=== PATIENT | male | born 1955 | race Caucasian/White ===

== ENCOUNTER 2016-12-30 13:16 | Emergency (ER) | payer MEDICAID ==
[2016-12-30] MEDS ORDERED: IPRATROPIUM/ALBUTEROL 3 ML NEB INH STA (13:50)
--- NOTE | 2016-12-30 13:54 | ED Physician Documentation ---
PD HPI DYSPNEA - Stated complaint Stated Complaint: WHEEZING - Chief complaint Chief Complaint: Resp - History obtained from History obtained from: Patient, Family (brother) - History of Present Illness Timing - onset: Other (61-year-old gentleman with history of asthma, and some sort of apparent developmental delay although they deny any other past medical history. For the last 2 weeks or so he has had a nonproductive cough especially when he eats associated with shortness of breath and audible wheezing but no chest pain. He has had a mild runny nose but nor sore throat or ear pain. He denies any pedal edema or calf pain. He lives with his brother , has been moved out here for the last 2 years from the [facility]. He does not have a local doctor.) Review of Systems Constitutional: denies: Fever, Chills Nose: reports: Rhinorrhea / runny nose. denies: Congestion Throat: denies: Sore throat Cardiac: denies: Chest pain / pressure, Palpitations Respiratory: reports: Dyspnea, Cough, Wheezing. denies: Hemoptysis GI: denies: Abdominal Pain PD PAST MEDICAL HISTORY - Past Medical History Respiratory: Asthma - Past Surgical History Past Surgical History: No - Present Medications Home Medications: Ambulatory Orders Medication Instructions Recorded Confirmed Albuterol Sulfate [Proventil Hfa 1 - 2 puffs IH Q4H PRN #1 12/30/16 Inhaler] [email or web address] Azithromycin [Zithromax] 250 mg PO DAILY #6 tablet 12/30/16 predniSONE [Deltasone] 60 mg PO DAILY 5 Days tablet 12/30/16 - Allergies Allergies/Adverse Reactions: Allergies Allergy/AdvReac Type Severity Reaction Status Date / Time No Known Drug Allergies Allergy Verified 12/30/16 13:27 - Social History Does the pt smoke?: No Smoking Status: Never smoker Does the pt drink ETOH?: No Does the pt have substance abuse?: No - Immunizations Immunizations are current?: No - POLST Patient has POLST: No PD ED PE NORMAL - Vitals Vital signs reviewed: Yes - General General: No acute distress, Well developed/nourished - HEENT HEENT: Ears normal, Pharynx benign - Neck Neck: Supple, no meningeal sign, No bony TTP - Cardiac Cardiac: RRR, No murmur - Respiratory Respiratory: Other (Nonlabored breathing, he has loud expiratory wheezing with mildly diminished breath sounds.) - Extremities Extremities: No edema, No calf tenderness / cord - Psych Psych: Normal mood, Normal affect Results - Vitals Vitals: Vital Signs - 24 hr 12/30/16 12/30/16 13:21 14:33 Temperature 36.1 C L 36.2 C L Heart Rate 96 Respiratory 16 17 Rate Blood Pressure 179/113 H 160/105 H O2 Saturation 95 96 Oxygen O2 Source Room air - Rads (name of study) 2v chest Radiology: EMP read contemporaneously (Viral or mycoplasmal pneumonia) PD MEDICAL DECISION MAKING - ED course ED course: 61-year-old with history of asthma, he is wheezing. A chest x-ray was done and shows potential walking pneumonia. This is treated with steroids and antibiotics. He was much improved on pulmonary examination after the administration of an albuterol neb here. The patient and family were counseled as to the diagnosis and need for follow- up. I counseled the patient with regard to signs and symptoms that would necessitate an urgent reevaluation in the emergency department. They understand they are welcome to return at any time if worse or if not improving as expected. This document was made in part using voice recognition software. While efforts are made to proofread this documents, sound alike and grammatical errors may occur. Departure - Departure Disposition: 01 Home, Self Care Clinical Impression: Pneumonia, Asthma Condition: Good Record reviewed to determine appropriate education?: Yes Instructions: ED Pneumonia Adult, Asthma Dc Follow-Up: [facility] [Provider Group] Prescriptions: Albuterol Sulfate [Proventil Hfa Inhaler] 1 - 2 puffs IH Q4H PRN #1 [email or web address] PRN Reason: Cough Azithromycin [Zithromax] 250 mg PO DAILY #6 tablet predniSONE [Deltasone] 60 mg PO DAILY 5 Days tablet Comments: Call your doctor to arrange a follow-up appointment, make the next available appointment. In the interim, return anytime if worse or if new symptoms develop. Your blood pressure was elevated today on check into the emergency department. This does not mean that you have hypertension, it is a common phenomenon to come to the emergency department and have elevated blood pressure. I recommend that you see your primary care physician within the week to have it rechecked when you are feeling better.
[2016-12-30] MEDS ORDERED: IPRATROPIUM/ALBUTEROL 3 ML NEB INH ONE (14:10)
--- NOTE | 2016-12-30 14:22 | XRAY Preliminary Report ---
Exam: XR CHEST 2 VIEW PA/LAT IMPRESSION: Interstitial prominence, possibly an interstitial pneumonitis, probably viral or mycoplas mal. [facility] SITE ID: [id number]
--- NOTE | 2016-12-30 14:24 | XRAY Report ---
EXAM: CHEST RADIOGRAPHY EXAM DATE: 12/30/2016 02:06 PM. CLINICAL HISTORY: Dyspnea. COMPARISON: None. TECHNIQUE: 2 views. FINDINGS: Lungs/Pleura: Diffuse interstitial prominence. Scarring or atelectasis in right lower lung zone. No c onsolidation, effusion, or pneumothorax. Mediastinum: Heart and mediastinal contours are unremarkable. Upper lobe vessels not distended. Other: Degenerative changes. IMPRESSION: Interstitial prominence, possibly an interstitial pneumonitis, probably viral or mycoplas mal. [facility] Referring Provider Line: [phone] SITE ID: [id number]
[2016-12-30 14:34] VITALS: BP 160/105
== END 2016-12-30 14:57 | disposition home or self-care (01) ==
LOC: ED 13:16
DX: J18.9 Pneumonia, unspecified organism (principal); J45.909 Unspecified asthma, uncomplicated; R03.0 Elevated blood-pressure reading, without diagnosis of hypertension
CPT/HCPCS: 71020; 99283; 99284; J7620

== ENCOUNTER 2019-01-13 10:17 | Emergency (ER) | payer MEDICAID ==
[2019-01-13] MEDS ORDERED: IPRATROPIUM/ALBUTEROL 3 ML NEB INH STA ×2 (10:36→14:07)
--- NOTE | 2019-01-13 11:15 | XRAY Report ---
Reason: cough, sob, wheezing/ Procedure Date: 01/13/2019 Accession Number: [id number] / [id number] Procedure: XR - Chest 1 View X-Ray CPT Code: 54113 Final Report FULL RESULT: EXAM: CHEST RADIOGRAPHY EXAM DATE: 01/13/2019 10:47 AM. CLINICAL HISTORY: Cough, short of breath, wheezing/. COMPARISON: CHEST 2 VIEW PA/LAT 12/30/2016 1:51 PM. TECHNIQUE: 1 view. FINDINGS: Lungs/Pleura: Mildly low volumes. No definite pneumonia or edema. No gross pneumothorax or large effusion. Mediastinum: Within exam limitations, cardiomediastinal contour is normal. Other: None. IMPRESSION: Mildly hypoventilatory chest without definite acute process. [facility]
[2019-01-13] MEDS ORDERED: ALBUTEROL NEB 2.5 MG/3 ML INH STA ×2 (11:20→15:59)
[2019-01-13] MEDS ORDERED: DEXAMETHASONE 10 MG/ML VIAL PO STA (11:21)
[2019-01-13] MEDS ORDERED: ALBUTEROL NEB 2.5 MG/3 ML INH ONE (11:21)
[2019-01-13] MEDS ORDERED: CHERRY SYRUP 10 ML UDC PO ONE (11:21)
--- NOTE | 2019-01-13 11:23 | ED Physician Documentation ---
PD HPI URI - Stated complaint Stated Complaint: SOA - Chief complaint Chief Complaint: Resp - History obtained from History obtained from: Patient, Family - History of Present Illness Timing - onset: How many weeks ago (1) Timing duration: Weeks (1) Timing details: Gradual onset, Still present Associated symptoms: Rhinorrhea, Productive cough, Dyspnea Contributing factors: Sick contact Improves by: Rest, Medication, MDI/nebulizer Worsened by: Activity Similar symptoms before: Diagnosis (asthma) Recently seen: Not recently seen - Additional information Additional information: 63-year-old male with a history of developmental delay and cerebral palsy has developed a cough and congestion and is coughing up yellow phlegm. He has been sick for the past week and he is having some trouble with non-stop coughing. He has used an inhaler previously but his brother who has moved him up here 4 years ago has not seen him have asthma this bad. He has had to use an inhaler periodically but he is not too good about using it. Review of Systems Constitutional: reports: Fatigue. denies: Fever Eyes: denies: Decreased vision Ears: denies: Ear pain Nose: reports: Rhinorrhea / runny nose, Congestion Throat: reports: Sore throat Cardiac: denies: Chest pain / pressure, Palpitations Respiratory: reports: Dyspnea, Cough, Wheezing GI: denies: Abdominal Pain, Nausea, Vomiting : denies: Dysuria, Frequency Skin: denies: Rash Musculoskeletal: denies: Neck pain, Back pain, Extremity pain Neurologic: denies: Generalized weakness, Focal weakness, Numbness PD PAST MEDICAL HISTORY - Past Medical History Respiratory: Asthma - Past Surgical History Past Surgical History: No - Present Medications Home Medications: Ambulatory Orders Medication Instructions Recorded Confirmed Albuterol Sulfate [Proventil Hfa 1 - 2 puffs IH Q4H PRN #1 12/30/16 Inhaler] [email or web address] Azithromycin [Zithromax] 250 mg PO DAILY #6 tablet 12/30/16 predniSONE [Deltasone] 60 mg PO DAILY 5 Days tablet 12/30/16 Albuterol Sulf [Ventolin Hfa 1 - 2 puffs INH Q4HR PRN #1 inhaler 01/13/19 Inhaler] Azithromycin [Zithromax] 250 mg PO DAILY #6 tablet 01/13/19 predniSONE [Deltasone] 10 mg PO ONCE #26 tablet 01/13/19 - Allergies Allergies/Adverse Reactions: Allergies Allergy/AdvReac Type Severity Reaction Status Date / Time No Known Drug Allergies Allergy Verified 12/30/16 13:27 - Social History Does the pt smoke?: No Smoking Status: Never smoker Does the pt drink ETOH?: No Does the pt have substance abuse?: No - Immunizations Immunizations are current?: No - POLST Patient has POLST: No PD ED PE NORMAL - Vitals Vital signs reviewed: Yes (tachy and hypertensive ) - General General: No acute distress, Well developed/nourished - HEENT HEENT: Atraumatic, PERRL, EOMI, Other (both TM's are mostly occluded from veiw by cerumen. There is inflamation in the posterior pharynx and swelling of the uvual. The mucous membranes are dry and there is exudate draining down the back of the phayrnx. ) - Neck Neck: Supple, no meningeal sign, No bony TTP - Cardiac Cardiac: No murmur, Other (tachy to 100) - Respiratory Respiratory: Other (coughing with every breath with diminished breath sounds without rhonchi ) - Abdomen Abdomen: Soft, Non tender - Back Back: No CVA TTP, No spinal TTP - Derm Derm: Normal color, Warm and dry, No rash - Extremities Extremities: No deformity, No edema - Neuro Neuro: auto cleaner 2-12 intact, No motor deficit, No sensory deficit, Normal speech Eye Opening: Spontaneous Motor: Obeys Commands Verbal: Oriented GCS Score: 15 - Psych Psych: Normal mood, Normal affect Results - Vitals Vitals: Vital Signs - 24 hr 01/13/19 01/13/19 01/13/19 10:23 10:51 11:19 Temperature 37 C Heart Rate 104 H 110 H 101 H Respiratory 24 24 26 H Rate Blood Pressure 193/112 H 169/114 H O2 Saturation 95 97 01/13/19 01/13/19 01/13/19 11:27 12:27 14:00 Temperature Heart Rate 104 H 106 H 96 Respiratory 24 24 16 Rate Blood Pressure 181/95 H 171/95 H O2 Saturation 92 93 01/13/19 01/13/19 14:31 16:00 Temperature Heart Rate 97 104 H Respiratory 20 16 Rate Blood Pressure 181/106 H O2 Saturation 93 Oxygen O2 Source Room air - Rads (name of study) chest Radiology: Prelim report reviewed (Impression: Mild hypoventilatory chest without definite acute process.), EMP read indepedently, See rad report PD MEDICAL DECISION MAKING - ED course Complexity details: reviewed results, re-evaluated patient, considered differential, d/w patient, d/w family ED course: 63-year-old developmentally delayed male with a history of asthma has developed an asthma exacerbation and appears to have an upper respiratory infection with copious amounts of yellow phlegm being coughed up. He seems like he is choking on phlegm continuously. He is administered dexamethasone on arrival to the emergency department and this has slowly begun to take effect. He is given a DuoNeb treatment and albuterol treatment and second DuoNeb treatment. He has marked improvement in his his breathing and he is taught on his fourth treatment, the use of a spacer and the use of the inhaler. We will discharge the patient with a course of prednisone and albuterol inhaler and a Z-Raj. Departure - Departure Disposition: 01 Home, Self Care Clinical Impression: Bronchitis Asthma exacerbation Qualifiers: Asthma severity: mild Asthma persistence: intermittent Qualified Code(s): J45.21 - Mild intermittent asthma with (acute) exacerbation Condition: Stable Instructions: ED Upper Resp Infec Abx Tx, ED Bronchitis Asthmatic Follow-Up: [facility] [Provider Group] Prescriptions: Albuterol Sulf [Ventolin Hfa Inhaler] 1 - 2 puffs INH Q4HR PRN #1 inhaler PRN Reason: Shortness Of Air/Wheezing Azithromycin [Zithromax] 250 mg PO DAILY #6 tablet predniSONE [Deltasone] 10 mg PO ONCE #26 tablet
[2019-01-13] MEDS ORDERED: cefTRIAXone 1 GM VIAL IM STA (15:59)
[2019-01-13] MEDS ORDERED: LIDOCAINE 1% 2 ML VIAL MC ONE (15:59)
[2019-01-13 17:36] VITALS: BP 194/86
== END 2019-01-13 17:36 | disposition home or self-care (01) ==
LOC: ED 10:17
DX: J45.21 Mild intermittent asthma with (acute) exacerbation (principal); J40 Bronchitis, not specified as acute or chronic; H61.23 Impacted cerumen, bilateral; G80.9 Cerebral palsy, unspecified
CPT/HCPCS: 71045; 94640; 96374; 99284; 99285; A9270

== ENCOUNTER 2020-03-21 01:18 | Emergency (ER) | payer MEDICAID ==
--- NOTE | 2020-03-21 01:31 | ED Physician Documentation ---
PD HPI NECK PAIN - Stated complaint Stated Complaint: STIFF NECK - Chief complaint Chief Complaint: Ext Problem - History obtained from History obtained from: Patient - History of Present Illness Timing - onset: How many days ago (2) Pain level now: 6 Location: Lower, Right Quality: Pain Associated symptoms: No: Fever, Weakness, Numbness Improves with: Position Worsened by: Movement Similar symptoms before: Has not had sx before Recently seen: Not recently seen - Additional information Additional information: c/o gradual onset of atraumatic right-sided neck pain that radiates to right trapezial ridge. denies h/o similar symptoms. has not taken any analgesics at home for this. Denies fever, rash Review of Systems Throat: denies: Sore throat Cardiac: denies: Chest pain / pressure Respiratory: reports: Cough (mild, nonproductive). denies: Dyspnea Skin: denies: Rash Musculoskeletal: reports: Neck pain. denies: Back pain Neurologic: denies: Focal weakness, Numbness, Headache PD PAST MEDICAL HISTORY - Past Medical History Respiratory: Asthma Other Past Medical History: cerebral palsy - Past Surgical History Past Surgical History: No - Present Medications Home Medications: Ambulatory Orders Medication Instructions Recorded Confirmed Albuterol Sulf [Ventolin Hfa 1 - 2 puffs INH Q4HR PRN #1 inhaler 01/13/19 03/21/20 Inhaler] Cyclobenzaprine [Flexeril] 10 mg PO TID PRN #20 tablet 03/21/20 HYDROcod/ACETAM 5/325 [Sterling 5/325] 1 - 2 ea PO Q6H PRN #15 tablet 03/21/20 - Allergies Allergies/Adverse Reactions: Allergies Allergy/AdvReac Type Severity Reaction Status Date / Time No Known Drug Allergies Allergy Verified 03/21/20 01:34 - Social History Does the pt smoke?: No Smoking Status: Never smoker Does the pt drink ETOH?: No Does the pt have substance abuse?: No - Immunizations Immunizations are current?: No - POLST Patient has POLST: No PD ED PE NORMAL - Vitals Vital signs reviewed: Yes - General General: Alert and oriented X 3, No acute distress, Well developed/nourished, Other (maintains neck in position of mild leftward rotation) - HEENT HEENT: PERRL, EOMI - Neck Neck: No bony TTP, No adenopathy, Thyroid normal, Other - Respiratory Respiratory: No respiratory distress, Clear bilaterally - Derm Derm: Normal color, Warm and dry, No rash - Extremities Extremities: Other (equal and strong bilateral radial pulses. FROM right shoulder. mild tenderness along right trapezial ridge) - Neuro Neuro: No motor deficit, No sensory deficit Results - Vitals Vitals: Vital Signs - 24 hr 03/21/20 03/21/20 01:20 02:56 Temperature 36.7 C 36.4 C L Heart Rate 96 92 Respiratory 16 16 Rate Blood Pressure 177/93 H 181/107 H O2 Saturation 98 95 Oxygen O2 Source Room air - Rads (name of study) chest xray Radiology: Prelim report reviewed, See rad report PD MEDICAL DECISION MAKING - ED course Complexity details: reviewed results, re-evaluated patient, considered differential, d/w patient ED course: c/o gradual onset right-sided neck pain that is ameliorated with maintaining leftward rotation of his neck. He has FROM of neck, but c/o increased pain with right rotation. nontender and no rash. He indicates the pain is most pronounced along right trapezial ridge. He has no fever nor rash; doubt meningitis. Shingles is possible and patient and his brother instructed to watch for any rash that develops in the area of the pain. He c/o mild [employer] cough, CXR is unremarkable and thus doubt developing pulmonary infectious process, no evidence of pneumothorax. cervical radiculopathy suspected, differential includes (but not limited to) spinal stenosis, spondylosis, discogenic pain, cervical facet osteoarthritis. Patient reported adequate relief with flexeril and vicodin, provided rx for same, instructed to f/u with PMD but return if worse or develops new concerning signs/symptoms Departure - Departure Disposition: Home, Self Care Clinical Impression: Neck pain High blood pressure Qualifiers: Hypertension type: unspecified Qualified Code(s): I10 - Essential (primary) hypertension Condition: Good Instructions: ED Hypertension Poss, ED Neck Pain No Trauma Follow-Up: [facility] [Provider Group] Prescriptions: Cyclobenzaprine [Flexeril] 10 mg PO TID PRN #20 tablet PRN Reason: Spasms HYDROcod/ACETAM 5/325 [Sterling 5/325] 1 - 2 ea PO Q6H PRN #15 tablet PRN Reason: Pain Discharge Date/Time: 03/21/20 03:15
[2020-03-21] MEDS ORDERED: HYDROcod/ACETAM 5/325 MG TABLET PO STA (01:47)
[2020-03-21] MEDS ORDERED: CYCLOBENZAPRINE 10 MG TABLET PO STA (01:47)
[2020-03-21 03:04] VITALS: BP 181/107
--- NOTE | 2020-03-21 08:39 | XRAY Report ---
PROCEDURE: Chest 2 View X-Ray INDICATIONS: right shoulder/neck pain, cough TECHNIQUE: 2 view(s) of the chest. COMPARISON: 01/13/2019, 12/30/2016 FINDINGS: Surgical changes and devices: None. Lungs and pleura: No pleural effusions or pneumothorax. Lungs are clear. Low lung volumes can be s een, causing a crowded appearance to the lung markings. Mediastinum: Mediastinal contours are normal. Heart size is normal. Bones and chest wall: S-shaped scoliotic curvature is incidentally noted. Lower thoracic spine ante rior wedge deformities are seen, which appear worse compared to 2017. Soft tissues appear unremarkabl e. IMPRESSION: Low lung volumes, without focal infiltrates. Lower thoracic spine anterior wedge deformities appear progressed compared to 2017. Note: No significant discrepancy from the preliminary report. Reviewed by: Pavel Samuel MD on 03/21/2020 7:37 AM [place] Approved by: Pavel Samuel MD on 03/21/2020 7:37 AM [facility] Station ID: [id number]
== END 2020-03-21 03:15 | disposition home or self-care (01) ==
LOC: ED 01:18
DX: M54.2 Cervicalgia (principal); R05 Cough; I10 Essential (primary) hypertension; G80.9 Cerebral palsy, unspecified; J45.909 Unspecified asthma, uncomplicated
CPT/HCPCS: 71046; 99283; 99284; A9270

== ENCOUNTER 2021-09-22 11:59 | Emergency (ER) | payer MEDICARE, MEDICAID ==
[2021-09-22] MEDS ORDERED: IPRATROPIUM/ALBUTEROL 3 ML NEB INH STA (12:20)
[2021-09-22 12:29] LABS: BASOPHILS % (AUTO) 0.3 %; EOSINOPHILS % (AUTO) 0.1 %; HCT - HEMATOCRIT 35.7 % (42.0-52.0); HGB - HEMOGLOBIN 12.4 g/dL (14.0-18.0); LYMPHOCYTES # (AUTO) 1.3 10^3/uL (1.5-3.5); LYMPHOCYTES % (AUTO) 9.2 %; MEAN CORPUSCULAR HEMOGLOBIN 31.5 pg (27.0-31.0); MEAN CORPUSCULAR HGB CONC 34.7 g/dL (32.0-36.0); MEAN CORPUSCULAR VOLUME 90.6 fL (80.0-94.0); MEAN PLATELET VOLUME 9.3 fL (7.4-11.4); MONOCYTES # (AUTO) 1.6 10^3/uL (0.0-1.0); MONOCYTES % (AUTO) 11.2 %; NEUTROPHILS % (AUTO) 78.3 %; PLT - PLATELET COUNT 287 10^3/uL (130-450); RED BLOOD COUNT 3.94 10^6/uL (4.70-6.10); RED CELL DISTRIBUTION WIDTH 12.9 % (12.0-15.0); WHITE BLOOD COUNT 14.1 x10^3/uL (4.8-10.8)
[2021-09-22 12:32] LABS: SLIDE REVIEW? Indicated
--- NOTE | 2021-09-22 12:43 | XRAY Report ---
PROCEDURE: Chest 1 View X-Ray INDICATIONS: dyspnea, wheezing TECHNIQUE: One view of the chest was acquired. COMPARISON: 03/21/2020 FINDINGS: Surgical changes and devices: None. Lungs and pleura: Lung volumes are low. The interstitium is prominent platelike atelectasis at the ri ght base. No pleural effusion or pneumothorax. Mediastinum: Mediastinal contours appear normal. Heart size is normal. Bones and chest wall: No suspicious bony lesions. Overlying soft tissues appear unremarkable. IMPRESSION: Low lung volumes. Interstitial prominence may be seen with edema or atypical infection. No pleural ef fusion. Platelike atelectasis/scarring at the right base. Reviewed by: Joe Nair MD on 09/22/2021 12:41 PM PDT Approved by: Joe Nair MD on 09/22/2021 12:41 PM PDT Station ID: [id number]
--- NOTE | 2021-09-22 12:53 | ED Physician Documentation ---
PD HPI DYSPNEA - Stated complaint Stated Complaint: SOA - Chief complaint Chief Complaint: Resp - History obtained from History obtained from: Family - History of Present Illness Timing - onset: Unknown - Additional information Additional information: 65-year-old male with history of cerebral palsy, history of asthma presents by private vehicle for shortness of breath unknown duration. History is obtained from the patient's legal guardian, who states that she went to check on the patient today and found him laying on the ground gasping for air this morning. Last seen normal approximately 3 days ago. Patient normally lives by himself, patient's current guardian recently obtained guardianship after a in the family. Medical guardian states that the patient has exhibited a wheezing breathing pattern intermittently for the last month, he has not been to see his primary care doctor for this. On arrival the patient was tachypneic, exhibiting loud inspiratory and expiratory wheezing, however oxygen saturation was 95% on room air. Patient was taken quickly to ER bed for stabilization. Review of Systems Unable to obtain: Other (SEVERE DYSPNEA, UNABLE TO TALK) Respiratory: reports: Dyspnea, Wheezing PD PAST MEDICAL HISTORY - Past Medical History Respiratory: Asthma Neuro: Cerebral palsy Psych: Other - Past Surgical History Past Surgical History: No - Present Medications Home Medications: Ambulatory Orders Medication Instructions Recorded Confirmed Albuterol Sulf [Ventolin Hfa 2 puffs INH Q6HR PRN 09/22/21 09/22/21 Inhaler] Budesonide/Formoterol Fumarate 2 puffs IH BID 09/22/21 09/22/21 [Symbicort 80-4.5 Mcg Inhaler] Cholecalciferol [Vitamin D3] 5,000 unit ORAL DAILY 09/22/21 09/22/21 Levothyroxine [Synthroid] 75 mcg PO QDAC 09/22/21 09/22/21 Losartan/Hydrochlorothiazide 1 each PO DAILY 09/22/21 09/22/21 [Hyzaar 100-25 Tablet] - Allergies Allergies/Adverse Reactions: Allergies Allergy/AdvReac Type Severity Reaction Status Date / Time No Known Drug Allergies Allergy Verified 09/22/21 12:09 - Social History Does the pt smoke?: No Smoking Status: Never smoker Does the pt drink ETOH?: No Does the pt have substance abuse?: No - Immunizations Immunizations are current?: No - POLST Patient has POLST: No PD ED PE NORMAL - Vitals Vital signs reviewed: Yes - General General: Other (Pale, toxic appearing) - HEENT HEENT: Atraumatic, PERRL, EOMI - Neck Neck: Supple, no meningeal sign, No bony TTP, C-Spine cleared by NEXUS criteria - Cardiac Cardiac: No murmur, Strong equal pulses, Other (tachycardia) - Respiratory Respiratory: Other (tachypnea, coarse wheezing) - Abdomen Abdomen: Soft, Non tender, Non distended, No organomegaly - Back Back: No CVA TTP, No spinal TTP - Derm Derm: Warm and dry, No rash, Other (pale) - Extremities Extremities: No tenderness to palpate, Normal ROM s pain - 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, No motor deficit, No sensory deficit, Normal speech (at baseline) Results - Vitals Vitals: Vital Signs - 24 hr 09/22/21 09/22/21 09/22/21 20:55 21:00 21:30 Heart Rate 99 97 106 H Respiratory 25 H 26 H 28 H Rate Blood Pressure 157/79 H 157/94 H 175/162 H O2 Saturation 95 98 96 09/22/21 09/22/21 09/22/21 22:00 22:17 22:30 Heart Rate 107 H 104 H 105 H Respiratory 26 H 27 H Rate Blood Pressure 160/89 H 153/99 H O2 Saturation 96 95 09/22/21 23:00 Heart Rate 96 Respiratory 29 H Rate Blood Pressure 171/104 H O2 Saturation 96 Oxygen O2 Source BIPAP Oxygen Flow Rate 2 - EKG (time done) 1244 Rate: Rate (enter#) (118) Rhythm: Sinus tachycardia [place]: Normal Intervals: Normal [place] QRS: Normal - Labs Labs: Microbiology 09/22/21 12:28 Blood Culture - Preliminary Blood NO GROWTH AFTER 1 DAY 09/22/21 12:21 Blood Culture - Preliminary Blood NO GROWTH AFTER 1 DAY Laboratory Tests 09/22/21 09/22/21 09/22/21 12:21 12:21 12:21 WBC 14.1 H RBC 3.94 L Hgb 12.4 L Hct 35.7 L MCV 90.6 MCH 31.5 H MCHC 34.7 RDW 12.9 Plt Count 287 MPV 9.3 Neut # (Auto) 11.0 H Lymph # (Auto) 1.3 L [place] # (Auto) 1.6 H Eos # (Auto) 0.0 Baso # (Auto) 0.0 Absolute Nucleated RBC 0.00 Nucleated RBC % 0.0 Manual Slide Review Indicated RBC Morph Micro Appear 1+ ANISOCYTOSIS APTT Bld Gas Analysis Time Sample Site ABG pH ABG pCO2 ABG pO2 ABG HCO3 ABG Total CO2 ABG O2 Saturation ABG Base Excess Jarrett Test O2 Delivery Device FiO2 EPAP IPAP Sodium Potassium Chloride Carbon Dioxide Anion Gap BUN Creatinine Estimated GFR (MDRD) Glucose Lactic Acid 2.0 Calcium Magnesium Total Bilirubin AST ALT Alkaline Phosphatase Troponin I High Sens B-Natriuretic Peptide 174 H Total Protein Albumin Globulin Albumin/Globulin Ratio Nasal Adenovirus (PCR) Nasal B. parapertussis DNA (PCR) Nasal Coronavir 229E PCR Nasal Coronavir HKU1 PCR Nasal Coronavir NL63 PCR Nasal Coronavir OC43 PCR Nasal Enterovir/Rhinovir PCR Nasal Influenza B PCR Nasal Influenza A PCR Nasal Parainfluen 1 PCR Nasal Parainfluen 2 PCR Nasal Parainfluen 3 PCR Nasal Parainfluen 4 PCR Nasal RSV (PCR) Nasal B.pertussis DNA PCR Nasal C.pneumoniae (PCR) Ar Human Metapneumo PCR Nasal M.pneumoniae (PCR) Nasal SARS-CoV-2 (PCR) 09/22/21 09/22/21 09/22/21 12:21 12:55 12:55 WBC RBC Hgb Hct MCV MCH MCHC RDW Plt Count MPV Neut # (Auto) Lymph # (Auto) [place] # (Auto) Eos # (Auto) Baso # (Auto) Absolute Nucleated RBC Nucleated RBC % Manual Slide Review RBC Morph Micro Appear APTT Bld Gas Analysis Time Sample Site ABG pH ABG pCO2 ABG pO2 ABG HCO3 ABG Total CO2 ABG O2 Saturation ABG Base Excess Jarrett Test O2 Delivery Device FiO2 EPAP IPAP Sodium 136 Potassium 3.4 L Chloride 98 L Carbon Dioxide 25 Anion Gap 13.0 BUN 38 H Creatinine 1.3 H Estimated GFR (MDRD) 55 L Glucose 220 H Lactic Acid Calcium 9.3 Magnesium 1.9 Total Bilirubin 1.3 H AST 164 H ALT 162 H Alkaline Phosphatase 78 Troponin I High Sens 529.6 H* B-Natriuretic Peptide Total Protein 7.7 Albumin 3.1 L Globulin 4.6 H Albumin/Globulin Ratio 0.7 L Nasal Adenovirus (PCR) NOT DETECTED Nasal B. parapertussis DNA (PCR) NOT DETECTED Nasal Coronavir 229E PCR NOT DETECTED Nasal Coronavir HKU1 PCR NOT DETECTED Nasal Coronavir NL63 PCR NOT DETECTED Nasal Coronavir OC43 PCR NOT DETECTED Nasal Enterovir/Rhinovir PCR NOT DETECTED Nasal Influenza B PCR NOT DETECTED Nasal Influenza A PCR NOT DETECTED Nasal Parainfluen 1 PCR NOT DETECTED Nasal Parainfluen 2 PCR NOT DETECTED Nasal Parainfluen 3 PCR NOT DETECTED Nasal Parainfluen 4 PCR NOT DETECTED Nasal RSV (PCR) NOT DETECTED Nasal B.pertussis DNA PCR NOT DETECTED Nasal C.pneumoniae (PCR) NOT DETECTED Ar Human Metapneumo PCR NOT DETECTED Nasal M.pneumoniae (PCR) NOT DETECTED Nasal SARS-CoV-2 (PCR) NOT DETECTED 09/22/21 09/22/21 09/22/21 14:35 14:56 19:45 WBC RBC Hgb Hct MCV MCH MCHC RDW Plt Count MPV Neut # (Auto) Lymph # (Auto) [place] # (Auto) Eos # (Auto) Baso # (Auto) Absolute Nucleated RBC Nucleated RBC % Manual Slide Review RBC Morph Micro Appear APTT 63.9 H Bld Gas Analysis Time 1443 Sample Site RIGHT RADIAL ABG pH 7.51 H ABG pCO2 30 L ABG pO2 86 ABG HCO3 23.1 ABG Total CO2 24.0 ABG O2 Saturation 97 ABG Base Excess 0.9 Jarrett Test POSITIVE O2 Delivery Device BiPAP FiO2 25.00 EPAP 5 IPAP 10 Sodium Potassium Chloride Carbon Dioxide Anion Gap BUN Creatinine Estimated GFR (MDRD) Glucose Lactic Acid Calcium Magnesium Total Bilirubin AST ALT Alkaline Phosphatase Troponin I High Sens 490.7 H* B-Natriuretic Peptide Total Protein Albumin Globulin Albumin/Globulin Ratio Nasal Adenovirus (PCR) Nasal B. parapertussis DNA (PCR) Nasal Coronavir 229E PCR Nasal Coronavir HKU1 PCR Nasal Coronavir NL63 PCR Nasal Coronavir OC43 PCR Nasal Enterovir/Rhinovir PCR Nasal Influenza B PCR Nasal Influenza A PCR Nasal Parainfluen 1 PCR Nasal Parainfluen 2 PCR Nasal Parainfluen 3 PCR Nasal Parainfluen 4 PCR Nasal RSV (PCR) Nasal B.pertussis DNA PCR Nasal C.pneumoniae (PCR) Ar Human Metapneumo PCR Nasal M.pneumoniae (PCR) Nasal SARS-CoV-2 (PCR) PD MEDICAL DECISION MAKING - ED course Complexity details: reviewed results, re-evaluated patient, considered differential, d/w patient ED course: Patient presenting in severe distress, audibly wheezing, tachypneic, using abdominal muscles for inspiration. Placed on nasal cannula. Guardian reports hx of asthma, will treat for suspected pneumonia versus asthma exacerbation with antibiotics, steroids, duo nebs. No significant improvement with DuoNeb's, patient is still audibly wheezing and tachypneic. Chest x-ray is concerning for pulmonary edema, however BNP is only 170. Patient is now in a hospital gown, his legs are severely edematous with overlying cellulitis, right lower extremity greater than left lower extremity. Uncertain how long his legs have been swollen, patient states it has been greater than 1 year, however guardian state that it has definitely not been that long but they do not know exactly when the swelling started. Lasix is ordered. Troponin is 500, EKG does not show any signs of ischemia, patient is denying chest pain. Still tachypneic with abdominal respirations, placed successfully on BiPAP with improvement in respiratory status. Hospitalist declined admission stating that patient would need an ischemic work-up. At this time the patient is diuresing, comfortable on BiPAP. Transfer to higher level of care pending. - Critical Care Time(min): 45 Time Includes: Direct patient care, Review records, Reassess patient, Document care, Coordinate care, Medical consult, Family consult for tx dec Data interpretation: Labs, Pulse ox, ABG, CXR, Cardiac output Procedures included in critical care time: Peripheral IV Departure - Departure Disposition: 02 Transfer Acute Care Hosp Clinical Impression: Volume overload, Cellulitis, Elevated troponin Condition: Serious Discharge Date/Time: 09/22/21 23:48
[2021-09-22 12:59] LABS: RBC MORPHOLOGY (MULTIPLE) 1+ ANISOCYTOSIS (NORMAL)
[2021-09-22 13:13] LABS: ALBUMIN 3.1 g/dL (3.2-5.5); ALBUMIN/GLOBULIN RATIO 0.7 (1.0-2.2); BILIRUBIN,TOTAL 1.3 mg/dL (0.2-1.0); CALCIUM 9.3 mg/dL (8.5-10.3); CREATININE 1.3 mg/dL (0.6-1.2); MAGNESIUM 1.9 mg/dL (1.7-2.8); POTASSIUM 3.4 mmol/L (3.5-5.0); TOTAL PROTEIN 7.7 g/dL (6.7-8.2)
[2021-09-22] MEDS ORDERED: FUROSEMIDE 40 MG/4 ML VIAL IVP STA (13:15)
--- NOTE | 2021-09-22 13:29 | CT Report ---
PROCEDURE: HEAD WO INDICATIONS: Multiple falls, generalized weakness TECHNIQUE: Noncontrast 4.5 mm thick angled axial sections acquired from the foramen magnum to the vertex. For r adiation dose reduction, the following was used: automated exposure control, adjustment of mA and/or kV according to patient size. COMPARISON: None. FINDINGS: Image quality: Excellent. CSF spaces: Basal cisterns are patent. No extra-axial fluid collections. Ventricles are normal in size and shape. Brain: No acute intracranial hemorrhage, abnormal extra-axial fluid collection, mass effect, or midli ne shift. Cunningham-white matter differentiation is maintained, without CT evidence of acute large territo ry infarct. Skull and face: Calvarium and visualized facial bones are intact, without suspicious lesions. Sinuses: Visualized sinuses and mastoids are clear. IMPRESSION: No acute intracranial finding. Reviewed by: Leo Castaneda MD on 09/22/2021 1:28 PM PDT Approved by: Leo Castaneda MD on 09/22/2021 1:28 PM PDT Station ID: [id number]
--- NOTE | 2021-09-22 13:32 | CT Report ---
PROCEDURE: CERVICAL SPINE WO INDICATIONS: Multiple falls, gen weakness TECHNIQUE: Noncontrast 3 mm thick sections acquired from the skull base to the T4 level. Sagittal and coronal r eformats were then constructed. For radiation dose reduction, the following was used: automated exp osure control, adjustment of mA and/or kV according to patient size. COMPARISON: None. FINDINGS: Image quality: Motion degraded. Bones: No fractures or dislocations. Visualized superior ribs are intact. Soft tissues: Prevertebral soft tissues are normal in thickness. No paravertebral hematomas. No ap ical pneumothoraces. IMPRESSION: Motion degraded exam. No gross CT evidence of acute traumatic cervical spine injury. Reviewed by: Leo Castaneda MD on 09/22/2021 1:31 PM PDT Approved by: Leo Castaneda MD on 09/22/2021 1:31 PM PDT Station ID: [id number]
[2021-09-22 13:51] LABS: B. PARAPERTUSSIS- RESP PCR PAN NOT DETECTED; B. PERTUSSIS- RESP PCR PANEL NOT DETECTED; C. PNEUMONIAE- RESP PCR PANEL NOT DETECTED; CORONAVIRUS 229E-RESP PCR NOT DETECTED; CORONAVIRUS HKU1-RESP PCR NOT DETECTED; CORONAVIRUS NL63-RESP PCR NOT DETECTED; CORONAVIRUS OC43-RESP PCR NOT DETECTED; HUMAN METAPNEUMOVIRUS NOT DETECTED; INFLUENZA A- RESP PCR PANEL NOT DETECTED; INFLUENZA B - RESP PCR PANEL NOT DETECTED; M. PNEUMONIAE- RESP PCR PANEL NOT DETECTED; PARAINFLUENZA VIRUS 1 NOT DETECTED; PARAINFLUENZA VIRUS 2 NOT DETECTED; PARAINFLUENZA VIRUS 3 NOT DETECTED; PARAINFLUENZA VIRUS 4 NOT DETECTED; RHINOVIRUS/ENTEROVIRUS NOT DETECTED; RSV- RESP PCR PANEL NOT DETECTED; SARS-CoV-2 -RESP PCR PANEL NOT DETECTED
[2021-09-22] MEDS ORDERED: VANCOMYCIN INJ 2 GM in SODIUM CHLORIDE 0.9% 500 ML IV SCH (14:00)
[2021-09-22] MEDS ORDERED: HEPARIN 25000UNITS/500ML (D5W) 25,000 UNIT/500 ML BAG IV SCH (14:00)
[2021-09-22 14:45] LABS: ABG BASE EXCESS 0.9 mmol/L (-2.0-3.0); ABG HCO3 23.1 mmol/L (22.0-26.0); ABG OXYGEN SATURATION 97 % (94-98); ABG PCO2 30 mmHg (34-45); ABG PH 7.51 (7.35-7.45); ABG PO2 86 mmHg (80-100); ALLEN TEST POSITIVE
[2021-09-22] MEDS ORDERED: ASPIRIN CHEW 81 MG TABLET PO STA (17:42)
--- NOTE | 2021-09-22 18:28 | CT Report ---
PROCEDURE: ANGIO CHEST W/WO INDICATIONS: dyspnea, hypoxemic respiratory failure CONTRAST: IV CONTRAST: Optiray 320 ml: 80 PO CONTRAST: *NO PO CONTRAST TECHNIQUE: After the administration of intravenous contrast, 2 mm axial images were acquired from the pulmonary apices to the posterior costophrenic angles during the arterial phase. In addition, 1 mm lung kernel and 5 mm soft tissue kernel reconstructions were performed. 3-dimensional coronal oblique maximum int ensity projection (MIP) reformats, 8 mm axial MIP, and 5 mm coronal and sagittal MPR reformats were t hen performed through the thorax. For radiation dose reduction, the following was used: automated exp osure control, adjustment of mA and/or kV according to patient size. COMPARISON: Correlation is made with the accompanying chest plain film, 09/22/2021. Correlation is als o made with the accompanying CT examinations of the head and cervical spine, 09/22/2021. FINDINGS: Image quality: Motion artifact is noted. There is streak artifact seen through the upper abdomen. Pulmonary arteries: Pulmonary arteries are normal in size, and demonstrate no intraluminal filling d efects to suggest central pulmonary embolism. However, motion artifact limits evaluation of the juan j pheral subsegmental arteries, particularly involving the lower lobes. Lungs and pleura: Likely streaky atelectasis can be seen at the lung bases. No pleural effusions or p neumothorax. Central and peripheral airways are patent. Mediastinum: Heart size is normal, without pericardial effusion. No mediastinal or hilar adenopathy . Moderate coronary artery calcification is seen. Thoracic aorta is normal in caliber and enhancement . Esophagus is normal in caliber, without hiatal hernia. Bones and chest wall: No suspicious bony lesions. Ribs and thoracic spine appear intact throughout. Age-appropriate degenerative changes are seen. There is accentuated thoracic kyphosis. No axillar y or supraclavicular adenopathy. The thyroid is normal in size and there are no incidental findings. Abdomen: An enlarged, fatty liver is seen. The visualized portions of the upper abdominal structures are otherwise within normal limits. IMPRESSION: Motion limited study demonstrating no findings of large or central pulmonary embolus. Incidental note is made of: Moderate coronary artery calcification Enlarged, fatty liver Reviewed by: Pavel Samuel MD on 09/22/2021 6:27 PM PDT Approved by: Pavel Samuel MD on 09/22/2021 6:27 PM PDT Station ID: [id number]
--- NOTE | 2021-09-22 20:46 | ED Physician Documentation ---
ED Addendum - Addendum Addendum: 09/22/21 20:[address] Dumont at shift change. Waiting for bed availability at [facility] and at this time he has been accepted to [facility] and cobras are completed. Disposition transferred to [facility] for higher level of care Condition guarded but stable
[2021-09-22 23:12] VITALS: BP 171/104
== END 2021-09-22 23:48 | disposition short-term general hospital (02) ==
LOC: ED 11:59
DX: E87.70 Fluid overload, unspecified (principal); I50.9 Heart failure, unspecified; L03.116 Cellulitis of left lower limb; L03.115 Cellulitis of right lower limb; R74.8 Abnormal levels of other serum enzymes; Z20.822 Contact with and (suspected) exposure to COVID-19
CPT/HCPCS: 36415; 36600; 70450; 71045; 71275; 72125; 80053; 82803; 83605; 83735; 83880; 84484; 85025; 85730; 87040; 87633; 93005; 94640; 94660; 96365; 96366; 96375; 99285; 99291; A9270; J3370; Q9967; 81001; 81003; 87086

== ENCOUNTER 2022-12-01 14:50 | Outpatient (CLI) | payer MEDICARE, MEDICAID ==
[2022-12-01 15:07] LABS: BASOPHILS % (AUTO) 0.2 %; EOSINOPHILS # (AUTO) 0.4 10^3/uL (0.0-0.7); HCT - HEMATOCRIT 42.3 % (42.0-52.0); HGB - HEMOGLOBIN 14.2 g/dL (14.0-18.0); LYMPHOCYTES # (AUTO) 1.8 10^3/uL (1.5-3.5); LYMPHOCYTES % (AUTO) 19.9 %; MEAN CORPUSCULAR HEMOGLOBIN 29.9 pg (27.0-31.0); MEAN CORPUSCULAR HGB CONC 33.6 g/dL (32.0-36.0); MEAN CORPUSCULAR VOLUME 89.1 fL (80.0-94.0); MEAN PLATELET VOLUME 10.6 fL (7.4-11.4); NEUTROPHILS # (AUTO) 5.7 10^3/uL (1.5-6.6); NEUTROPHILS % (AUTO) 64.5 %; PLT - PLATELET COUNT 269 10^3/uL (130-450); RED BLOOD COUNT 4.75 10^6/uL (4.70-6.10); RED CELL DISTRIBUTION WIDTH 13.1 % (12.0-15.0); WHITE BLOOD COUNT 8.9 x10^3/uL (4.8-10.8)
[2022-12-01 15:48] LABS: ALBUMIN 3.9 g/dL (3.2-5.5)
[2022-12-01 15:51] LABS: BILIRUBIN,TOTAL 0.6 mg/dL (0.2-1.0); CALCIUM 9.5 mg/dL (8.5-10.3); CREATININE 0.9 mg/dL (0.6-1.3); POTASSIUM 4.8 mmol/L (3.5-4.5); TOTAL PROTEIN 7.8 g/dL (6.4-8.9)
== END 2022-12-01 14:51 | disposition home or self-care (01) ==
LOC: LAB.R 14:50
PROVIDERS: ATTEND Registered Nurse
DX: E11.9 Type 2 diabetes mellitus without complications (principal); E78.5 Hyperlipidemia, unspecified; Z87.19 Personal history of other diseases of the digestive system
CPT/HCPCS: 80053; 85025; 87086

== ENCOUNTER 2023-02-22 08:00 | Outpatient (CLI) | payer MEDICAID, MEDICARE ==
[2023-02-22 17:30] LABS: BUN - BLOOD UREA NITROGEN 24 mg/dL (6-20); CALCIUM 9.6 mg/dL (8.5-10.3); CARBON DIOXIDE - CO2 28 mmol/L (21-32); CHLORIDE 101 mmol/L (101-111); CHOL/HDL RATIO 6.8 (<5.0); CHOLESTEROL 191 mg/dL; GFR - MDRD 75 (>89); GLUCOSE 76 mg/dL (74-104); HDL CHOLESTEROL 28 mg/dL; LDL CHOLESTEROL,CALCULATED 100 mg/dL; LDL/HDL RATIO 3.6 (<3.6); POTASSIUM 4.6 mmol/L (3.5-4.5); SODIUM 136 mmol/L (135-145); TRIGLYCERIDES 316 mg/dL (48-352); VLDL CHOLESTEROL 63 mg/dL
[2023-02-22 18:18] LABS: ESTIMATED AVERAGE GLUCOSE 111 mg/dL (70-100); HEMOGLOBIN A1c% 5.5 % (4.27-6.07)
[2023-02-22 19:55] LABS: THYROID STIMULATING HORMONE 8.42 uIU/mL (0.34-5.60)
== END 2023-02-22 23:59 | disposition home or self-care (01) ==
LOC: LAB.R 08:00
DX: E78.5 Hyperlipidemia, unspecified (principal); Z79.84 Long term (current) use of oral hypoglycemic drugs; E03.9 Hypothyroidism, unspecified
CPT/HCPCS: 80048; 80061; 83036; 83721; 84439; 84443

== ENCOUNTER 2023-04-22 19:47 | Outpatient (CLI) | payer MEDICARE, MEDICAID | END 2023-04-22 19:48 | disposition critical access hospital (66) | LOC: EMS 19:47 | DX: R07.9 Chest pain, unspecified (principal); R10.13 Epigastric pain; I16.9 Hypertensive crisis, unspecified; R11.0 Nausea | CPT/HCPCS: A0425; A0427 ==

== ENCOUNTER 2023-04-22 19:52 | Emergency (ER) | payer MEDICARE, MEDICAID ==
[2023-04-22 20:26] LABS: BASOPHILS % (AUTO) 0.3 %; EOSINOPHILS # (AUTO) 0.1 10^3/uL (0.0-0.7); EOSINOPHILS % (AUTO) 0.8 %; HCT - HEMATOCRIT 47.9 % (42.0-52.0); HGB - HEMOGLOBIN 15.8 g/dL (14.0-18.0); LYMPHOCYTES # (AUTO) 1.8 10^3/uL (1.5-3.5); LYMPHOCYTES % (AUTO) 12.7 %; MEAN CORPUSCULAR HEMOGLOBIN 30.8 pg (27.0-31.0); MEAN CORPUSCULAR VOLUME 93.4 fL (80.0-94.0); MEAN PLATELET VOLUME 9.4 fL (7.4-11.4); MONOCYTES # (AUTO) 0.9 10^3/uL (0.0-1.0); MONOCYTES % (AUTO) 6.5 %; NEUTROPHILS # (AUTO) 11.3 10^3/uL (1.5-6.6); NEUTROPHILS % (AUTO) 79.1 %; PLT - PLATELET COUNT 273 10^3/uL (130-450); RED BLOOD COUNT 5.13 10^6/uL (4.70-6.10); RED CELL DISTRIBUTION WIDTH 12.7 % (12.0-15.0); WHITE BLOOD COUNT 14.2 x10^3/uL (4.8-10.8)
[2023-04-22] MEDS: MORPHINE 2 MG/ML CARPUJECT IVP STA (20:28)
[2023-04-22 20:41] LABS: ALBUMIN 4.3 g/dL (3.2-5.5); BILIRUBIN,TOTAL 0.5 mg/dL (0.2-1.0); CALCIUM 10.3 mg/dL (8.5-10.3); CREATININE 0.9 mg/dL (0.6-1.3); POTASSIUM 4.8 mmol/L (3.5-4.5); TOTAL PROTEIN 8.6 g/dL (6.4-8.9)
--- NOTE | 2023-04-22 20:43 | ED Physician Documentation ---
PD HPI ABD PAIN - Stated complaint Stated Complaint: CP - Chief complaint Chief Complaint: Cardiac - History obtained from History obtained from: Patient - History of Present Illness Timing - onset: Today Timing - duration: Days - Additional information Additional information: Patient is a 67-year-old male history of cerebral palsy and asthma who presents to the emergency department stating that he developed abdominal pain and epigastric pain after having a bowel movement tonight. He states that the pain radiates from his epigastric area up into his chest. Worse with palpation, movement. He is unable to describe the character of the pain. He lives at [facility]. Was given nitroglycerin without relief. Patient denies any cardiac history. Does have a history of hypertension and reportedly has not been taking his antihypertensive medication. Review of Systems Constitutional: denies: Fever, Chills Throat: denies: Sore throat Cardiac: denies: Palpitations Respiratory: denies: Cough GI: reports: Abdominal Pain, Nausea Skin: denies: Rash Musculoskeletal: denies: Neck pain, Back pain Neurologic: denies: Headache PD PAST MEDICAL HISTORY - Past Medical History Cardiovascular: Hypertension Respiratory: Asthma Neuro: Cerebral palsy Psych: Other - Past Surgical History Past Surgical History: No - Present Medications Home Medications: Ambulatory Orders Medication Instructions Recorded Confirmed Albuterol Sulf [Ventolin Hfa 2 puffs INH Q6HR PRN 09/22/21 09/22/21 Inhaler] Budesonide/Formoterol Fumarate 2 puffs IH BID 09/22/21 09/22/21 [Symbicort 80-4.5 Mcg Inhaler] Cholecalciferol [Vitamin D3] 5,000 unit ORAL DAILY 09/22/21 09/22/21 Levothyroxine [Synthroid] 75 mcg PO QDAC 09/22/21 09/22/21 Losartan/Hydrochlorothiazide 1 each PO DAILY 09/22/21 09/22/21 [Hyzaar 100-25 Tablet] - Allergies Allergies/Adverse Reactions: Allergies Allergy/AdvReac Type Severity Reaction Status Date / Time No Known Drug Allergies Allergy Verified 04/22/23 20:00 - Social History Does the pt smoke?: No Smoking Status: Never smoker Does the pt drink ETOH?: No Does the pt have substance abuse?: No - Immunizations Immunizations are current?: No - POLST Patient has POLST: No PD ED PE NORMAL - Vitals Vital signs reviewed: Yes - General General: Alert and oriented X 3, No acute distress - HEENT HEENT: PERRL, Moist mucous membranes - Neck Neck: Supple, no meningeal sign - Cardiac Cardiac: RRR, Strong equal pulses - Respiratory Respiratory: No respiratory distress, Clear bilaterally - Abdomen Abdomen: Soft, Non distended, Other (Tender to palpation epigastric and right upper quadrant. No peritoneal signs.) - Back Back: No CVA TTP, No spinal TTP - Derm Derm: Warm and dry - Extremities Extremities: No edema, No calf tenderness / cord - Neuro Neuro: Alert and oriented X 3 - Psych Psych: Normal mood, Normal affect Results - Vitals Vitals: Vital Signs - 24 hr 04/22/23 04/22/23 04/22/23 20:00 20:30 20:37 Temperature 36.4 C L Heart Rate 90 82 82 Respiratory 22 21 18 Rate Blood Pressure 166/136 H 215/97 H 215/97 H O2 Saturation 92 95 92 04/22/23 04/22/23 21:07 21:30 Temperature Heart Rate 82 82 Respiratory 24 21 Rate Blood Pressure 203/119 H 227/109 H O2 Saturation 92 94 Oxygen O2 Source Room air - EKG (time done) 1957 EKG releavant findings:: EKG personally interpreted by author of this note. Relevant findings are: Rate: Rate (enter#) (85) Rhythm: NSR [place]: Normal Intervals: Normal [place] QRS: Normal Ischemia: Normal ST segments, Other (early R wave transition) - Labs Labs: Laboratory Tests 04/22/23 04/22/23 20:23 20:23 WBC 14.2 H RBC 5.13 Hgb 15.8 Hct 47.9 MCV 93.4 MCH 30.8 MCHC 33.0 RDW 12.7 Plt Count 273 MPV 9.4 Neut # (Auto) 11.3 H Lymph # (Auto) 1.8 [place] # (Auto) 0.9 Eos # (Auto) 0.1 Baso # (Auto) 0.0 Absolute Nucleated RBC 0.00 Nucleated RBC % 0.0 Sodium 136 Potassium 4.8 H Chloride 102 Carbon Dioxide 26 Anion Gap 8.0 BUN 24 H Creatinine 0.9 Estimated GFR (MDRD) 84 L Glucose 166 H Calcium 10.3 Total Bilirubin 0.5 AST 21 ALT 13 Alkaline Phosphatase 91 Troponin I High Sens 14.5 Total Protein 8.6 Albumin 4.3 Globulin 4.3 H Albumin/Globulin Ratio 1.0 Lipase 43 - Rads (name of study) cxr Relevant Findings:: Final report received, See rad report CT abd.[email or web address] Relevant Findings:: Final report received, See rad report PD Medical Decision Making - ED course Complexity details: reviewed results, re-evaluated patient, considered differential, d/w patient ED course: 67-year-old male presents to the emergency department with what sounds like epigastric and right upper quadrant abdominal pain more than chest pain. His chest x-ray does show some mild cardiomegaly. His pain improved with IV morphine. CT abdomen pelvis does not show any acute abnormalities other than a possibly mildly thickened gallbladder wall without additional CT findings of cholecystitis. Also has some mildly enlarged inguinal lymph nodes. He does have fatty infiltration of the liver and moderate coronary artery calcification. His EKG does not show any acute ischemic findings. Initial high-sensitivity troponin is negative. Symptoms occurred approximately 3 hours prior to arrival. Ultrasound is not available tonight, bedside ultrasound does not reveal any gallstones. There is no pericholecystic fluid. Gallbladder wall is 3.2 mm. Was unable to clearly visualize his bile duct. His LFTs are normal. Given a GI cocktail to see if this relieves his pain, possible GERD? Patient will be signed out to Dr. Somers awaiting repeat evaluation. He will also need a repeat troponin to ensure that it remains negative. If the patient's pain is controlled, it is likely that he will be able to go home with a negative second troponin. Recommend that he take his antihypertensive medication as prescribed as well. Patient is otherwise well-appearing, nontoxic. This document was made in part using voice recognition software. While efforts are made to proofread this document, sound alike and grammatical errors may occur. Departure - Departure Clinical Impression: Abdominal pain Qualifiers: Abdominal location: unspecified location Qualified Code(s): R10.9 - Unspecified abdominal pain Hypertension Qualifiers: Hypertension type: unspecified Qualified Code(s): I10 - Essential (primary) hypertension Condition: Stable Forms: PCP List
--- NOTE | 2023-04-22 20:44 | XRAY Report ---
PROCEDURE: Chest 1V INDICATIONS: Chest Pain TECHNIQUE: One view of the chest was acquired. COMPARISON: 09/22/2021 FINDINGS: Surgical changes and devices: None. Lungs and pleura: An incomplete inspiratory result is noted, with low lung volumes and crowding of t he vascular markings. Generalized interstitial prominence can be seen. No focal infiltrates are seen. No large pneumothorax or large pleural effusion can be seen. Mediastinum: Mediastinal contours appear normal. Heart size is mildly enlarged. Bones and chest wall: No suspicious bony lesions. Overlying soft tissues appear unremarkable. IMPRESSION: There is mild cardiomegaly. Generalized interstitial prominence can be seen which is improved compared to 09/22/2021. Differential diagnosis includes artifact from the incomplete inspiratory result and a mild degree of pulmonary kyle ma. Reviewed by: Pavel Samuel MD on 04/22/2023 7:42 PM [place] Approved by: Pavel Samuel MD on 04/22/2023 7:42 PM [facility] Station ID: [id number]
[2023-04-22] MEDS ORDERED: IOVERSOL 320 100 ML VIAL IVP ONE (20:46)
[2023-04-22 21:02] LABS: TROPONIN I HIGH SENSITIVITY 14.5 ng/L (2.3-19.7)
[2023-04-22] MEDS: IOVERSOL 320 100 ML VIAL IVP ONE (21:25)
--- NOTE | 2023-04-22 21:38 | CT Report ---
PROCEDURE: Abdomen/Pelvis W INDICATIONS: diffuse abd pain CONTRAST: 100 ML OPTI 320 TECHNIQUE: After the administration of intravenous contrast, a CT scan of the abdomen and pelvis was performed. Images were recorded and evaluated at appropriate window settings. Reformats: coronal and sagittal. F or radiation dose reduction, the following was used: automated exposure control, adjustment of mA and /or kV according to patient size. COMPARISON: Correlation is made with the accompanying imaging. Correlation is made with the overlapp ing portions of chest CT, 09/21/2021. FINDINGS: Image quality: Motion artifact is noted. Lower chest: Moderate coronary calcification is seen. Liver: No solid mass. The previously seen fat infiltration has resolved. Gallbladder and biliary tree: No radiopaque gallstone is seen. The gallbladder wall appears minimally thickened. No kenn pericholecystic fluid can be seen. No pericholecystic inflammatory change is see n. Spleen: No splenomegaly. Pancreas: No pancreatic ductal dilation. Adrenals: No adrenal nodule. Kidneys and ureters: No hydronephrosis. No renal cystic lesion which requires follow up. No solid mas s. Stomach, bowel and peritoneum: No bowel distension. No pathologic free fluid. Lymph nodes: No central or retroperitoneal adenopathy. Vessels: No infrarenal aortic aneurysm. Atherosclerotic calcification is seen. PELVIS Reproductive organs: Unremarkable. Bladder: No abnormal wall thickening, accounting for underdistention. Pelvic lymph nodes: Borderline prominent bilateral external iliac lymph nodes are seen. Mildly enlarg ed bilateral groin lymph nodes are seen, with the largest on the right measuring 13 x 11 mm and the l argest on the left measuring 11 x 11 mm. Bones: No aggressive osseous abnormality. Age-appropriate degenerative changes are seen. Mild dextro convex scoliotic curvature is seen. Other: A moderate right inguinal hernia seen, which contains fat and fluid. IMPRESSION: Minimal gallbladder wall thickening can be seen, without additional CT findings of cholecystitis. If there is strong clinical concern for gallbladder pathology in this patient, please consider a follow- up right upper quadrant ultrasound for further evaluation. Mildly enlarged inguinal lymph nodes are seen. Borderline prominent external iliac lymph nodes are al so seen on both sides. . Additional findings: Moderate coronary calcification Result fatty infiltration of the liver Moderate right inguinal hernia seen, containing fat and fluid Reviewed by: Pavel Samuel MD on 04/22/2023 8:37 PM [place] Approved by: Pavel Samuel MD on 04/22/2023 8:37 PM [facility] Station ID: [id number]
[2023-04-22] MEDS: MAG HYDROX/AL HYDROX/SIMETH 30 ML UDC PO STA (21:54)
[2023-04-22] MEDS: SUCRALFATE 1 GM/10 ML UDC PO STA (21:55)
[2023-04-22] MEDS: LIDOCAINE VISCOUS 2% 15 ML ORAL SYRINGE MM STA (21:55)
[2023-04-22] MEDS: FAMOTIDINE 20 MG TABLET PO STA (21:55)
[2023-04-22] MEDS: HYDROmorphone 1 MG/ML CARPUJECT IVP STA (22:17)
[2023-04-22] MEDS: LABETALOL 20 MG/4 ML SYRINGE IVP STA (23:42)
--- NOTE | 2023-04-22 23:48 | ED Physician Documentation ---
ED Addendum - Addendum Addendum: 04/22/23 Pt signed out to me at shift change From Dr. Shultz pending reevaluation after GI cocktail as well as repeat troponin. Repeat troponin is slightly elevated from initial which was normal. Patient has had relief with GI cocktail and has been resting comfortably here. He has had significantly elevated blood pressure readings here which may be the cause for the elevated troponin. Will give a dose of labetalol and reassess. No current chest pain. 04/23/23 00:49 Third troponin is not significantly changed from second with only 2 point increase. Therefore I do not feel like this is a significant elevation to suggest an NSTEMI. Likely slight demand from uncontrolled hypertension. Improvement in blood pressure after labetalol and he has been without any symptoms during my shift. Patient understands importance of taking his medications and states he has not because he does not like the taste. I encouraged him to continue to try to take the medicine or have close follow-up with his PCP to discuss alternatives.Patient counseled on concerning symptoms to return for. Departure - Departure Disposition: 01 Home, Self Care Clinical Impression: Abdominal pain Qualifiers: Abdominal location: unspecified location Qualified Code(s): R10.9 - Unspecified abdominal pain Hypertension Qualifiers: Hypertension type: unspecified Qualified Code(s): I10 - Essential (primary) hypertension Condition: Stable Instructions: ED Chest Pain Atypical Unkn Cause, ED Abdominal Pain Unkn Cause Male Comments: You need to Make sure you are taking your blood pressure medications. Please follow-up with your primary care doctor regarding your symptoms. Return to the ER with any worsening. Forms: PCP List Discharge Date/Time: 04/23/23 01:24
[2023-04-23 01:16] VITALS: BP 156/76; O2SAT 98
== END 2023-04-23 01:24 | disposition home or self-care (01) ==
LOC: EDUNIT# → ED 19:52
DX: R10.9 Unspecified abdominal pain (principal); I10 Essential (primary) hypertension; Z91.148 Patient's other noncompliance with medication regimen for other reason
CPT/HCPCS: 36415; 71045; 74177; 80053; 83690; 84484; 85025; 93005; 96374; 96375; 99284; 99285; A9270; Q9967

== ENCOUNTER 2023-04-23 01:28 | Outpatient (CLI) | payer MEDICARE, MEDICAID | END 2023-04-23 01:29 | LOC: EMS 01:28 | PROVIDERS: ATTEND Emergency Medicine | DX: G80.9 Cerebral palsy, unspecified (principal); M62.49 Contracture of muscle, multiple sites; R10.9 Unspecified abdominal pain; I10 Essential (primary) hypertension | CPT/HCPCS: A0425; A0428 ==

== ENCOUNTER 2023-04-24 08:00 | Outpatient (CLI) | payer MEDICARE, MEDICAID ==
[2023-04-24 19:27] LABS: CALCIUM 9.6 mg/dL (8.5-10.3); CREATININE 1.3 mg/dL (0.6-1.3); POTASSIUM 4.9 mmol/L (3.5-4.5)
[2023-04-24 19:28] LABS: THYROID STIMULATING HORMONE 5.04 uIU/mL (0.34-5.60)
[2023-04-24 21:04] LABS: ESTIMATED AVERAGE GLUCOSE 105 mg/dL (70-100); HEMOGLOBIN A1c% 5.3 % (4.27-6.07)
== END 2023-04-24 23:59 | disposition home or self-care (01) ==
LOC: LAB.R 08:00
PROVIDERS: ATTEND Registered Nurse
DX: I10 Essential (primary) hypertension (principal); E78.5 Hyperlipidemia, unspecified; E11.9 Type 2 diabetes mellitus without complications; E03.9 Hypothyroidism, unspecified
CPT/HCPCS: 80048; 83036; 84443

== ENCOUNTER 2023-04-26 17:05 | Outpatient (CLI) | payer MEDICARE, MEDICAID | END 2023-04-26 17:06 | disposition critical access hospital (66) | LOC: EMS 17:05 | DX: R10.11 Right upper quadrant pain (principal); Z99.3 Dependence on wheelchair | CPT/HCPCS: A0425; A0427 ==

== ENCOUNTER 2023-04-26 17:14 | Emergency (ER) | payer MEDICARE, MEDICAID ==
--- NOTE | 2023-04-26 17:27 | ED Physician Documentation ---
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 Started about an hour prior to arrival. Was seen here about 4 days ago for same. Symptoms were relieved with a GI cocktail at that time. No fevers. No vomiting. No nausea. Nothing seems to make it better or worse. Was given Toradol by EMS without relief. CT scan showed possible mild gallbladder wall thickening at last visit, bedside ultrasound revealed a normal-appearing gallbladder with a known thickened wall but no pericholecystic fluid. Review of Systems Constitutional: denies: Fever, Chills Ears: denies: Ear pain Nose: denies: Rhinorrhea / runny nose, Congestion Cardiac: denies: Chest pain / pressure Respiratory: denies: Cough, Wheezing GI: denies: Vomiting, Diarrhea Skin: denies: Rash, Abrasion (s) Musculoskeletal: denies: Neck pain, Back pain Neurologic: denies: Headache PD PAST MEDICAL HISTORY - Past Medical History Past Medical History: Yes Cardiovascular: Hypertension Respiratory: Asthma Neuro: Cerebral palsy Psych: Other - Past Surgical History Past Surgical History: No - Present Medications Home Medications: Ambulatory Orders Medication Instructions Recorded Confirmed Albuterol Sulf [Ventolin Hfa 2 puffs INH Q6HR PRN 09/22/21 04/26/23 Inhaler] Budesonide/Formoterol Fumarate 2 puffs IH BID 09/22/21 04/26/23 [Symbicort 80-4.5 Mcg Inhaler] Cholecalciferol [Vitamin D3] 5,000 unit ORAL DAILY 09/22/21 04/26/23 Levothyroxine [Synthroid] 75 mcg PO QDAC 09/22/21 04/26/23 Losartan/Hydrochlorothiazide 1 each PO DAILY 09/22/21 04/26/23 [Hyzaar 100-25 Tablet] Esomeprazole Magnesium [Nexium] 40 mg PO DAILY #30 cap 04/26/23 Famotidine [Pepcid] 20 mg PO BID #60 tablet 04/26/23 Fluticasone/Salmeterol [Advair 1 each IH BID 04/26/23 04/26/23 250-50 Diskus] Sucralfate [Carafate] 1 gm PO ACHS #60 tablet 04/26/23 - Allergies Allergies/Adverse Reactions: Allergies Allergy/AdvReac Type Severity Reaction Status Date / Time No Known Drug Allergies Allergy Verified 04/26/23 17:24 - Social History Does the pt smoke?: No Smoking Status: Never smoker Does the pt drink ETOH?: No Does the pt have substance abuse?: No - Immunizations Immunizations are current?: No - POLST Patient has POLST: No PD ED PE NORMAL - Vitals Vital signs reviewed: Yes - General General: Alert and oriented X 3, No acute distress - HEENT HEENT: PERRL, Moist mucous membranes - Neck Neck: Supple, no meningeal sign - Cardiac Cardiac: RRR - Respiratory Respiratory: Clear bilaterally - Abdomen Abdomen: Soft, Non distended, Other (Tender palpation right upper quadrant. No peritoneal signs. Positive Puga sign) - Back Back: No CVA TTP, No spinal TTP - Derm Derm: Warm and dry - Extremities Extremities: No edema - Neuro Neuro: Alert and oriented X 3 - Psych Psych: Normal mood, Normal affect Results - Vitals Vitals: Vital Signs - 24 hr 04/26/23 04/26/23 17:19 20:10 Temperature 36.6 C Heart Rate 82 62 Respiratory 20 16 Rate Blood Pressure 124/81 H 148/83 H O2 Saturation 96 100 Oxygen O2 Source Room air - Labs Labs: Laboratory Tests 04/26/23 04/26/23 17:36 17:36 WBC 13.0 H RBC 4.05 L Hgb 12.6 L Hct 38.0 L MCV 93.8 MCH 31.1 H MCHC 33.2 RDW 12.5 Plt Count 256 MPV 9.3 Neut # (Auto) 9.5 H Lymph # (Auto) 1.4 L [place] # (Auto) 1.7 H Eos # (Auto) 0.4 Baso # (Auto) 0.0 Absolute Nucleated RBC 0.00 Band Neuts % (Manual) Not Reportable Abnorm Lymph % (Manual) Not Reportable Nucleated RBC % 0.0 Neutrophils # (Manual) Not Reportable Lymphocytes # (Manual) Not Reportable Monocytes # (Manual) Not Reportable Eosinophils # (Manual) Not Reportable Basophils # (Manual) Not Reportable Differential Comment MANUAL=AUTO DIFF Platelet Estimate NORMAL (130-450,000) Platelet Morphology NORMAL APPEARANCE RBC Morph Micro Appear NORMAL APPEARANCE Sodium 137 Potassium 4.4 Chloride 102 Carbon Dioxide 29 Anion Gap 6.0 BUN 34 H Creatinine 1.1 Estimated GFR (MDRD) 67 L Glucose 115 H Calcium 9.4 Total Bilirubin 0.5 AST 13 ALT 11 Alkaline Phosphatase 60 Total Protein 7.6 Albumin 3.8 Globulin 3.8 Albumin/Globulin Ratio 1.0 Lipase 22 - Rads (name of study) Right upper quadrant ultrasound Relevant Findings:: Final report received, See rad report PD Medical Decision Making - ED course Complexity details: reviewed results, re-evaluated patient, considered differential, d/w patient ED course: Patient symptoms resolved with a GI cocktail. Pain-free. Resting quietly in bed. Possible GERD versus gastritis? His right upper quadrant ultrasound shows a persistently mildly thickened gallbladder, but no pericholecystic fluid. Abdomen is soft, nontender nondistended on serial exam. Discussed the case with Dr. Cano, general surgery on-call, he recommends an outpatient HIDA scan and follow-up with his PCP for further care. We will place the patient on an H2 flower, PPI and Carafate. See if this improves his symptoms. May benefit from an endoscopy as well. Tolerating p.o. without difficulty and without pain here. Patient counseled regarding signs and symptoms for which I believe and urgent re-evaluation would be necessary. Patient with good understanding of and agreement to plan and is comfortable going home at this time This document was made in part using voice recognition software. While efforts are made to proofread this document, sound alike and grammatical errors may occur. Departure - Departure Disposition: 01 Home, Self Care Clinical Impression: Abdominal pain Qualifiers: Abdominal location: unspecified location Qualified Code(s): R10.9 - Unspecified abdominal pain Condition: Good Instructions: ED Abdominal Pain Unkn Cause Male Follow-Up: your,doctor in 1 week [Other] Prescriptions: Sucralfate [Carafate] 1 gm PO ACHS #60 tablet Esomeprazole Magnesium [Nexium] 40 mg PO DAILY #30 cap Famotidine [Pepcid] 20 mg PO BID #60 tablet Comments: Please follow-up with your doctor for further care. I spoke with Dr. Jerome navarro, general surgery, he recommends an outpatient HIDA scan for your gallbladder. I also recommend a low-fat diet. We will try you on several new medications. These were sent to [facility]. You may benefit from an EGD as well, which is a scope of your stomach. This can be scheduled with your doctor as well. Please return if you worsen. Please return for worsening pain, vomiting, fevers or other new or worrisome symptoms. Forms: PCP List Discharge Date/Time: 04/26/23 21:44
[2023-04-26] MEDS: MAG HYDROX/AL HYDROX/SIMETH 30 ML UDC PO STA (17:35)
[2023-04-26] MEDS: LIDOCAINE VISCOUS 2% 15 ML ORAL SYRINGE MM STA (17:35)
[2023-04-26] MEDS: SUCRALFATE 1 GM/10 ML UDC PO STA (17:35)
[2023-04-26] MEDS: FAMOTIDINE 20 MG TABLET PO STA (17:35)
[2023-04-26 17:42] LABS: BASOPHILS % (AUTO) 0.1 %; EOSINOPHILS # (AUTO) 0.4 10^3/uL (0.0-0.7); EOSINOPHILS % (AUTO) 2.7 %; HGB - HEMOGLOBIN 12.6 g/dL (14.0-18.0); LYMPHOCYTES # (AUTO) 1.4 10^3/uL (1.5-3.5); LYMPHOCYTES % (AUTO) 10.8 %; MEAN CORPUSCULAR HEMOGLOBIN 31.1 pg (27.0-31.0); MEAN CORPUSCULAR HGB CONC 33.2 g/dL (32.0-36.0); MEAN CORPUSCULAR VOLUME 93.8 fL (80.0-94.0); MEAN PLATELET VOLUME 9.3 fL (7.4-11.4); MONOCYTES # (AUTO) 1.7 10^3/uL (0.0-1.0); MONOCYTES % (AUTO) 12.7 %; NEUTROPHILS # (AUTO) 9.5 10^3/uL (1.5-6.6); NEUTROPHILS % (AUTO) 73.2 %; PLT - PLATELET COUNT 256 10^3/uL (130-450); RED BLOOD COUNT 4.05 10^6/uL (4.70-6.10); RED CELL DISTRIBUTION WIDTH 12.5 % (12.0-15.0)
[2023-04-26 17:58] LABS: ALBUMIN 3.8 g/dL (3.2-5.5); BILIRUBIN,TOTAL 0.5 mg/dL (0.2-1.0); CALCIUM 9.4 mg/dL (8.5-10.3); CREATININE 1.1 mg/dL (0.6-1.3); POTASSIUM 4.4 mmol/L (3.5-4.5); TOTAL PROTEIN 7.6 g/dL (6.4-8.9)
[2023-04-26 18:16] LABS: DIFFERENTIAL COMMENT MANUAL=AUTO DIFF; PLATELET ESTIMATE, MANUAL NORMAL (130-450,000) (NORMAL); PLATELET MORPHOLOGY NORMAL APPEARANCE (NORMAL); RBC MORPHOLOGY (MULTIPLE) NORMAL APPEARANCE (NORMAL)
--- NOTE | 2023-04-26 19:26 | Ultrasound Report ---
PROCEDURE: Abdomen Limited INDICATIONS: RUQ pain TECHNIQUE: Real-time focused scanning was performed of the abdomen, with image documentation. COMPARISONS: CT abdomen pelvis 04/22/2023 FINDINGS: Liver: Liver is normal in size and homogeneous in echotexture. Gallbladder: Nonmobile focus of increased echogenicity measuring approximately 8 mm. Gallbladder wall is prominent ranging from 3.8 to 4.6 mm. Biliary ducts: Intrahepatic bile ducts are non-dilated. Extrahepatic bile duct caliber measures 3.4 mm. Normal is 6-7 mm or less in diameter, or 10 mm or less post-cholecystectomy. Pancreas: Visualized portions of the pancreas are sonographically normal. Right kidney: Normal in size and echotexture. Right kidney measures 9.9 cm long. No hydronephrosis o r nephrolithiasis. No solid masses. No complex renal cystic lesions which require follow-up. Aorta: Visualized aorta is normal in caliber at less than 3 cm. IVC: Intrahepatic inferior vena cava is patent. Miscellaneous: No free abdominal fluid. IMPRESSION: Unchanged appearance of mild gallbladder wall thickening. Echogenic focus within the lumen is present likely polyp. Adherent stone cannot be definitively excluded. Given apparent cholecystitis cannot be excluded and recommend clinical correlation. Reviewed by: Vannessa Ferrara MD on 04/26/2023 7:24 PM PST Approved by: Vannessa Ferrara MD on 04/26/2023 7:24 PM PST Station ID: [id number]
[2023-04-26 20:17] VITALS: BP 148/83; O2SAT 100
[2023-04-26] MEDS: HYDROcod/ACETAM 5/325 MG TABLET PO STA (20:24)
== END 2023-04-26 21:44 | disposition home or self-care (01) ==
LOC: EDUNIT# → ED 17:14
DX: R10.11 Right upper quadrant pain (principal); I10 Essential (primary) hypertension
CPT/HCPCS: 36415; 76705; 80053; 83690; 85025; 99284; A9270

== ENCOUNTER 2023-04-26 21:55 | Outpatient (CLI) | payer MEDICARE, MEDICAID | END 2023-04-26 21:56 | disposition home or self-care (01) | LOC: EMS 21:55 | PROVIDERS: ATTEND Emergency Medicine | DX: R10.9 Unspecified abdominal pain (principal) | CPT/HCPCS: A0425; A0428 ==

== ENCOUNTER 2023-04-28 15:24 | Outpatient (CLI) | payer MEDICARE, MEDICAID | END 2023-04-28 23:59 | disposition critical access hospital (66) | LOC: EMS 15:24 | DX: R10.11 Right upper quadrant pain (principal) | CPT/HCPCS: A0425; A0429 ==

== ENCOUNTER 2023-04-28 15:47 | Emergency (ER) | payer MEDICARE, MEDICAID ==
--- NOTE | 2023-04-28 15:53 | ED Physician Documentation ---
PD HPI ABD PAIN - Stated complaint Stated Complaint: RUQ ABD PX - History obtained from History obtained from: Patient - Additional information Additional information: 67-year-old gentleman with history of cerebral palsy, no history of abdominal surgeries presents for abdominal pain. He was originally seen for this on the second of this month at which point he had a CT which showed some gallbladder wall thickening but no secondary signs of cholecystitis, a white count of 14, an unremarkable liver enzymes. Subsequently returned on the sixth of this month, had an ultrasound that was also showing gallbladder wall thickening but no other real signs of cholecystitis. Labs continued to show normal liver enzymes and now a white blood cell count of 13. He returns today with persistent pain and nausea. d PD PAST MEDICAL HISTORY - Past Medical History Cardiovascular: Hypertension Respiratory: Asthma Neuro: Cerebral palsy Psych: Other - Past Surgical History Past Surgical History: No - Present Medications Home Medications: Ambulatory Orders Medication Instructions Recorded Confirmed Albuterol Sulf [Ventolin Hfa 2 puffs INH Q6HR PRN 09/22/21 04/26/23 Inhaler] Budesonide/Formoterol Fumarate 2 puffs IH BID 09/22/21 04/26/23 [Symbicort 80-4.5 Mcg Inhaler] Cholecalciferol [Vitamin D3] 5,000 unit ORAL DAILY 09/22/21 04/26/23 Levothyroxine [Synthroid] 75 mcg PO QDAC 09/22/21 04/26/23 Losartan/Hydrochlorothiazide 1 each PO DAILY 09/22/21 04/26/23 [Hyzaar 100-25 Tablet] Esomeprazole Magnesium [Nexium] 40 mg PO DAILY #30 cap 04/26/23 Famotidine [Pepcid] 20 mg PO BID #60 tablet 04/26/23 Fluticasone/Salmeterol [Advair 1 each IH BID 04/26/23 04/26/23 250-50 Diskus] Sucralfate [Carafate] 1 gm PO ACHS #60 tablet 04/26/23 - Allergies Allergies/Adverse Reactions: Allergies Allergy/AdvReac Type Severity Reaction Status Date / Time No Known Drug Allergies Allergy Verified 04/28/23 15:59 - Social History Does the pt smoke?: No Smoking Status: Never smoker Does the pt drink ETOH?: No Does the pt have substance abuse?: No - Immunizations Immunizations are current?: No - POLST Patient has POLST: No PD ED PE NORMAL - Vitals Vital signs reviewed: Yes - General General: Alert and oriented X 3, No acute distress - Cardiac Cardiac: RRR, No murmur - Respiratory Respiratory: No respiratory distress, Clear bilaterally - Abdomen Abdomen: Normal bowel sounds, Other (He is exquisitely tender in the right upper quadrant) - Neuro Neuro: Alert and oriented X 3, Normal speech Results - Vitals Vitals: Vital Signs - 24 hr 04/28/23 04/28/23 04/28/23 15:51 18:57 20:00 Temperature 36.4 C L 36.1 C L Heart Rate 85 59 L 55 L Respiratory 20 18 22 Rate Blood Pressure 149/80 H 122/63 133/76 H O2 Saturation 98 93 96 Oxygen O2 Source Room air - Labs Labs: Laboratory Tests 04/28/23 04/28/23 16:25 16:25 WBC 18.8 H RBC 3.99 L Hgb 12.4 L Hct 38.5 L MCV 96.5 H MCH 31.1 H MCHC 32.2 RDW 12.4 Plt Count 245 MPV 9.6 Neut # (Auto) Not Reportable Lymph # (Auto) Not Reportable [place] # (Auto) Not Reportable Eos # (Auto) Not Reportable Baso # (Auto) Not Reportable Absolute Nucleated RBC Not Reportable Total Counted 100 Band Neuts % (Manual) 5 Abnorm Lymph % (Manual) 0 Nucleated RBC % Not Reportable Neutrophils # (Manual) 15.8 H Lymphocytes # (Manual) 0.9 L Monocytes # (Manual) 1.9 H Eosinophils # (Manual) 0.2 Basophils # (Manual) 0.0 Differential Comment MANUAL DIFFERENTIAL Platelet Estimate NORMAL (130-450,000) Platelet Morphology NORMAL APPEARANCE RBC Morph Micro Appear NORMAL APPEARANCE Sodium 132 L Potassium 4.1 Chloride 100 L Carbon Dioxide 24 Anion Gap 8.0 BUN 21 H Creatinine 0.9 Estimated GFR (MDRD) 84 L Glucose 113 H Calcium 9.4 Total Bilirubin 0.8 AST 16 ALT 11 Alkaline Phosphatase 64 Total Protein 7.6 Albumin 3.7 Globulin 3.9 Albumin/Globulin Ratio 0.9 L Lipase 19 PD Medical Decision Making - ED course ED course: 67-year-old gentleman with cerebral palsy presents with persistent right upper quadrant pain and some concern for cholecystitis based on previous workup. Today he is quite tender and his white count has risen to 18,000 with normal liver enzymes. Discussed case by phone with our surgeon, Dr. Cano who recommends transfer to a tertiary facility with capability to do HIDA scan to confirm diagnosis. Ordered Zosyn for potential cholecystitis. He was graciously accepted to [facility] by their surgeon, Dr. Mcclellan at 1753. [place] are completed and he is stable for transport. Subsequently no bed was available at [facility] and I presented the case to Dr. Quiroz, the general surgeon at [place] and subsequently Nallely Beebe, em ergency physician at [facility] and they accepted the patient. This was at approximately 7:52 PM. Departure - Departure Disposition: 02 Transfer Acute Care Hosp Clinical Impression: Cholecystitis Condition: Stable
[2023-04-28] MEDS: HYDROmorphone 1 MG/ML CARPUJECT IVP STA (16:29)
[2023-04-28 16:33] LABS: BASOPHILS % (AUTO) 0.2 %; EOSINOPHILS % (AUTO) 0.3 %; HCT - HEMATOCRIT 38.5 % (42.0-52.0); HGB - HEMOGLOBIN 12.4 g/dL (14.0-18.0); LYMPHOCYTES % (AUTO) 5.8 %; MEAN CORPUSCULAR HEMOGLOBIN 31.1 pg (27.0-31.0); MEAN CORPUSCULAR HGB CONC 32.2 g/dL (32.0-36.0); MEAN CORPUSCULAR VOLUME 96.5 fL (80.0-94.0); MEAN PLATELET VOLUME 9.6 fL (7.4-11.4); MONOCYTES % (AUTO) 11.6 %; NEUTROPHILS % (AUTO) 81.5 %; PLT - PLATELET COUNT 245 10^3/uL (130-450); RED BLOOD COUNT 3.99 10^6/uL (4.70-6.10); RED CELL DISTRIBUTION WIDTH 12.4 % (12.0-15.0); WHITE BLOOD COUNT 18.8 x10^3/uL (4.8-10.8)
[2023-04-28 16:46] LABS: ABNORMAL LYMPHS % (MANUAL) 0 %
[2023-04-28 16:57] LABS: BAND NEUTROPHILS % (MANUAL) 5 %; EOSINOPHILS # (MANUAL) 0.2 10^3/uL (0-0.7); LYMPHOCYTES # (MANUAL) 0.9 10^3/uL (1.5-3.5); LYMPHOCYTES % (MANUAL) 5 %; MONOCYTES # (MANUAL) 1.9 10^3/uL (0.0-1.0); NEUTROPHILS # (MANUAL) 15.8 10^3/uL (1.5-6.6)
[2023-04-28 16:58] LABS: DIFFERENTIAL COMMENT MANUAL DIFFERENTIAL; PLATELET ESTIMATE, MANUAL NORMAL (130-450,000) (NORMAL); PLATELET MORPHOLOGY NORMAL APPEARANCE (NORMAL); RBC MORPHOLOGY (MULTIPLE) NORMAL APPEARANCE (NORMAL)
[2023-04-28 17:13] LABS: ALBUMIN 3.7 g/dL (3.2-5.5); ALBUMIN/GLOBULIN RATIO 0.9 (1.0-2.2); BILIRUBIN,TOTAL 0.8 mg/dL (0.2-1.0); CALCIUM 9.4 mg/dL (8.5-10.3); CREATININE 0.9 mg/dL (0.6-1.3); POTASSIUM 4.1 mmol/L (3.5-4.5); TOTAL PROTEIN 7.6 g/dL (6.4-8.9)
[2023-04-28] MEDS: PIPERACILLIN/TAZOBACTAM 3.375 GM in SODIUM CHLORIDE 0.9% MINIBAG 100 ML IV SCH (17:30)
--- NOTE | 2023-04-28 17:41 | Ultrasound Report ---
PROCEDURE: Abdomen Limited INDICATIONS: ruq pain TECHNIQUE: Real-time focused scanning was performed of the abdomen, with image documentation. COMPARISONS: None. FINDINGS: Possible small stone measuring 5 mm is seen at the neck. Mild wall thickening at 3 to 4 mm. No sonogr aphic Puga's sign was elicited at the time of examination. Gallbladder is mildly distended. CBD measures 5 to 6 mm, at the upper limit of normal. IMPRESSION: Mildly distended gallbladder. Possible small 5 mm stone at the neck. A polyp is less likely given the presence of shadowing. There is mild wall thickening. No focal sonographic Puga's sign. If further imaging is desired, con cashier general HIDA study. Reviewed by: Joe Nair MD on 04/28/2023 5:40 PM PST Approved by: Joe Nair MD on 04/28/2023 5:40 PM PST Station ID: [id number]
[2023-04-28 20:59] VITALS: BP 133/76; O2SAT 96
== END 2023-04-28 21:42 | disposition short-term general hospital (02) ==
LOC: EDUNIT# → ED 15:47
DX: G80.9 Cerebral palsy, unspecified (principal); K81.9 Cholecystitis, unspecified
CPT/HCPCS: 36415; 76705; 80053; 83690; 85025; 96365; 96375; 99284; 99285; J1170

== ENCOUNTER 2023-05-06 12:33 | Outpatient (CLI) | payer MEDICARE, MEDICAID | END 2023-05-06 23:59 | disposition critical access hospital (66) | LOC: EMS 12:33 | DX: R10.11 Right upper quadrant pain (principal); R10.32 Left lower quadrant pain; R10.31 Right lower quadrant pain; M25.512 Pain in left shoulder | CPT/HCPCS: A0425; A0429 ==

== ENCOUNTER 2023-05-06 12:42 | Emergency (ER) | payer MEDICARE, MEDICAID ==
--- NOTE | 2023-05-06 12:51 | ED Physician Documentation ---
History of Present Illness - Stated complaint Stated Complaint: ABD PX - Additonal information Additional information: 67-year-old male with history of cerebral palsy presents emergency department for abdominal pain. Patient was originally seen here 04/28/2023 where he was [facility] cholecyst[facility]. Cholecystectomy was complete and he was then [facility] on 05/04/[facility]23. Patient was brought in today via EMS for worsening abdominal pain. Patient says that he feels pain pretty generalized throughout he has got a large incision to his right upper quadrant and one small incision by his bellybutton. He is complaining of bloating sensation to his lower abdomen he said last bowel movement was today he is unsure if he has been having any fevers or chills but he feels increased generalized abdominal discomfort despite taking oxycodone at assisted facility. PD PAST MEDICAL HISTORY - Past Medical History Cardiovascular: Hypertension Respiratory: Asthma Neuro: Cerebral palsy Psych: Other - Past Surgical History Past Surgical History: No General: Cholecystectomy - Present Medications Home Medications: Ambulatory Orders Medication Instructions Recorded Confirmed Albuterol Sulf [Ventolin Hfa 2 puffs INH Q6HR PRN 09/22/21 04/26/23 Inhaler] Budesonide/Formoterol Fumarate 2 puffs IH BID 09/22/21 04/26/23 [Symbicort 80-4.5 Mcg Inhaler] Cholecalciferol [Vitamin D3] 5,000 unit ORAL DAILY 09/22/21 04/26/23 Levothyroxine [Synthroid] 75 mcg PO QDAC 09/22/21 04/26/23 Losartan/Hydrochlorothiazide 1 each PO DAILY 09/22/21 04/26/23 [Hyzaar 100-25 Tablet] Esomeprazole Magnesium [Nexium] 40 mg PO DAILY #30 cap 04/26/23 Famotidine [Pepcid] 20 mg PO BID #60 tablet 04/26/23 Fluticasone/Salmeterol [Advair 1 each IH BID 04/26/23 04/26/23 250-50 Diskus] Sucralfate [Carafate] 1 gm PO ACHS #60 tablet 04/26/23 - Allergies Allergies/Adverse Reactions: Allergies Allergy/AdvReac Type Severity Reaction Status Date / Time No Known Drug Allergies Allergy Verified 05/06/23 12:45 - Social History Does the pt smoke?: No Smoking Status: Never smoker Does the pt drink ETOH?: No Does the pt have substance abuse?: No - Immunizations Immunizations are current?: No - POLST Patient has POLST: No PD ED PE NORMAL - Vitals Vital signs reviewed: Yes - General General: Alert and oriented X 3, Well developed/nourished, Other (appears to be quite uncomfortable) - Cardiac Cardiac: RRR, No gallop, Strong equal pulses - Respiratory Respiratory: No respiratory distress, Clear bilaterally - Abdomen Abdomen: Normal bowel sounds, Other (Generalized abdominal tenderness with distension. Large RUQ incision, wound edges well approximated. angeline in place with erythema and induration surrounding incision. From portions of incision there is purulent drainage visualized.) - Derm Derm: Other (erythema surrounding RUQ incision with induration and purulent drainage) Results - Vitals Vitals: Vital Signs - 24 hr 05/06/23 05/06/23 12:46 17:00 Temperature 36.8 C 36.7 C Heart Rate 88 97 Respiratory 20 16 Rate Blood Pressure 128/82 H 134/77 H O2 Saturation 98 98 Oxygen O2 Source Room air - Labs Labs: Laboratory Tests 05/06/23 05/06/23 05/06/23 13:00 13:00 13:00 WBC 18.1 H RBC 2.40 L Hgb 7.3 L Hct 23.6 L MCV 98.3 H MCH 30.4 MCHC 30.9 L RDW 12.5 Plt Count 627 H MPV 9.0 Neut # (Auto) 13.5 H Lymph # (Auto) 2.0 [place] # (Auto) 1.7 H Eos # (Auto) 0.4 Baso # (Auto) 0.1 Absolute Nucleated RBC 0.00 Nucleated RBC % 0.0 Manual Slide Review Indicated WBC Morphology NORMAL APPEARANCE Platelet Estimate INCREASED (>450,000) Platelet Morphology NORMAL APPEARANCE RBC Morph Micro Appear NORMAL APPEARANCE Sodium 136 Potassium 4.1 Chloride 101 Carbon Dioxide 28 Anion Gap 7.0 BUN 21 H Creatinine 1.0 Estimated GFR (MDRD) 75 L Glucose 120 H Lactic Acid 1.2 Calcium 9.0 Magnesium 1.9 Total Bilirubin 0.3 AST 24 ALT 31 Alkaline Phosphatase 75 Total Protein 7.2 Albumin 3.2 Globulin 4.0 Albumin/Globulin Ratio 0.8 L Lipase 12 Urine Color Urine Clarity Urine pH Ur Specific [place] Urine Protein Urine Glucose (UA) Urine Ketones Urine Occult Blood Urine Nitrite Urine Bilirubin Urine Urobilinogen Ur Leukocyte Esterase Ur Microscopic Review Urine Culture Comments 05/06/23 13:38 WBC RBC Hgb Hct MCV MCH MCHC RDW Plt Count MPV Neut # (Auto) Lymph # (Auto) [place] # (Auto) Eos # (Auto) Baso # (Auto) Absolute Nucleated RBC Nucleated RBC % Manual Slide Review WBC Morphology Platelet Estimate Platelet Morphology RBC Morph Micro Appear Sodium Potassium Chloride Carbon Dioxide Anion Gap BUN Creatinine Estimated GFR (MDRD) Glucose Lactic Acid Calcium Magnesium Total Bilirubin AST ALT Alkaline Phosphatase Total Protein Albumin Globulin Albumin/Globulin Ratio Lipase Urine Color YELLOW Urine Clarity CLEAR Urine pH 7.5 Ur Specific [place] 1.015 Urine Protein TRACE Urine Glucose (UA) NEGATIVE Urine Ketones NEGATIVE Urine Occult Blood NEGATIVE Urine Nitrite NEGATIVE Urine Bilirubin NEGATIVE Urine Urobilinogen 0.2 (NORMAL) Ur Leukocyte Esterase NEGATIVE Ur Microscopic Review NOT INDICATED Urine Culture Comments NOT INDICATED PD Medical Decision Making - ED course ED course: 67-year-old male presents emergency department for worsening abdominal pain. Patient reports that he is generalized. He has about 7 to 8 days postop cholecystectomy. Wound to the right upper quadrant is opened and it does appear to be infected all angeline were removed from the superior umbilical incision as well as the right upper quadrant incision there is a significant amount of serosanguineous drainage as well as purulent drainage from the lateral portion of the right upper quadrant incision. Labs are collected significant leukocytosis 18.10 he also has significant anem ia, hemoglobin 7.3, Significant hemoglobin drop, on 04/28/2023 hemoglobin was 12.4, hematocrit 23.6 platelet count 627 neutrophils 13.5 monocytes 1.7. BUN is slightly elevated at 21, creatinine normal at 1.0, GFR 75. Urinalysis unremarkable. CT with con was complete and revealed status post recent cholecystectomy with fluid and air in the gallbladder fossa and areas surrounding soft tissue stran ding indicative of possible infection versus postoperative changes. Given that patient has significant induration surrounding incision as well as purulent drainage with significant weeping of serosanguineous drainage I am concerned of this being related to an infection. I spoke with [facility] surgeon Dr. Clotilde Shen, greatly appreciate her support she is with the surgical team who did the surgery and the patient and has agreed to accept patient back to [facility] to go to an ER to ER transfer. I then gave report to Dr. Young, ER dr who has accepted the pt for transfer. He will go via ground transport I have started him on vancomycin and Zosyn with approval of Dr. Shen, pt aware of transfer. I spoke with [facility] patient power of workers compensation defense attorney who is updated about the plan originally patient was declining to go to [facility] but lives she is his power of workers compensation defense attorney and she says that he needs to go and patient is now agreeable to go. Departure - Departure Disposition: 02 Transfer [facility] Clinical Impression: Post op infection Qualifiers: Encounter type: initial encounter Postoperative infection type: deep incisional surgical site Qualified Code(s): T81.42XA - Infection following a procedure, deep incisional surgical site, initial encounter Forms: PCP List Discharge Date/Time: 05/06/23 19:30
[2023-05-06 12:57] VITALS: O2SAT 98
[2023-05-06] MEDS: HYDROmorphone 0.5 MG/0.5 ML SYRINGE IVP STA ×2 (13:04→19:25)
[2023-05-06] MEDS: ONDANSETRON ODT 4 MG TABLET TL STA (13:04)
[2023-05-06 13:15] LABS: BASOPHILS # (AUTO) 0.1 10^3/uL (0.0-0.1); BASOPHILS % (AUTO) 0.3 %; EOSINOPHILS # (AUTO) 0.4 10^3/uL (0.0-0.7); EOSINOPHILS % (AUTO) 2.3 %; HCT - HEMATOCRIT 23.6 % (42.0-52.0); HGB - HEMOGLOBIN 7.3 g/dL (14.0-18.0); MEAN CORPUSCULAR HEMOGLOBIN 30.4 pg (27.0-31.0); MEAN CORPUSCULAR HGB CONC 30.9 g/dL (32.0-36.0); MEAN CORPUSCULAR VOLUME 98.3 fL (80.0-94.0); MONOCYTES # (AUTO) 1.7 10^3/uL (0.0-1.0); MONOCYTES % (AUTO) 9.4 %; NEUTROPHILS # (AUTO) 13.5 10^3/uL (1.5-6.6); NEUTROPHILS % (AUTO) 74.5 %; PLT - PLATELET COUNT 627 10^3/uL (130-450); RED CELL DISTRIBUTION WIDTH 12.5 % (12.0-15.0); WHITE BLOOD COUNT 18.1 x10^3/uL (4.8-10.8)
[2023-05-06 13:16] LABS: PLATELET ESTIMATE, MANUAL INCREASED (>450,000) (NORMAL); PLATELET MORPHOLOGY NORMAL APPEARANCE (NORMAL); RBC MORPHOLOGY (MULTIPLE) NORMAL APPEARANCE (NORMAL); SLIDE REVIEW? Indicated; WBC MORPHOLOGY (MULTIPLE) NORMAL APPEARANCE (NORMAL)
[2023-05-06 13:32] LABS: ALBUMIN 3.2 g/dL (3.2-5.5); ALBUMIN/GLOBULIN RATIO 0.8 (1.0-2.2); BILIRUBIN,TOTAL 0.3 mg/dL (0.2-1.0); MAGNESIUM 1.9 mg/dL (1.7-2.3); POTASSIUM 4.1 mmol/L (3.5-4.5); TOTAL PROTEIN 7.2 g/dL (6.4-8.9)
[2023-05-06 13:47] LABS: BILIRUBIN,URINE NEGATIVE (NEGATIVE); GLUCOSE, URINE (UA) NEGATIVE (NEGATIVE); KETONES,URINE (UA) NEGATIVE (NEGATIVE); LEUKOCYTE ESTERASE, URINE NEGATIVE (NEGATIVE); NITRITE,URINE NEGATIVE (NEGATIVE); OCCULT BLOOD,URINE NEGATIVE (NEGATIVE); PH,URINE 7.5 PH (5.0-7.5); PROTEIN,URINE TRACE mg/dL (NEGATIVE); UROBILINOGEN,URINE 0.2 (NORMAL) E.U./dL (NORMAL)
[2023-05-06 13:48] LABS: CLARITY,URINE CLEAR (CLEAR)
[2023-05-06] MEDS: SODIUM CHLORIDE 0.9% 1,000 ML IV ONE (13:57)
[2023-05-06] MEDS ORDERED: iohexoL-300 100 ML VIAL ONE (14:02)
--- NOTE | 2023-05-06 15:53 | CT Report ---
PROCEDURE: Abdomen/Pelvis W INDICATIONS: post cholecystectomy, abdominal pain CONTRAST: 100ml omni 300 TECHNIQUE: After the administration of intravenous contrast, a CT scan of the abdomen and pelvis was performed. Images were recorded and evaluated at appropriate window settings. Reformats: coronal and sagittal. F or radiation dose reduction, the following was used: automated exposure control, adjustment of mA and /or kV according to patient size. COMPARISON: Abdominal ultrasound 04/27/2021, CT abdomen pelvis 04/22/2023. FINDINGS: Image quality: Mildly degraded by patient motion artifact.. Lower chest: Dependent atelectasis. Coronary artery calcifications.. Liver: No solid mass. Gallbladder and biliary tree: Status post recent cholecystectomy. There is fluid and air in the gallb ladder fossa with areas of surrounding soft tissue stranding. Findings may represent postoperative ch anges, however infection cannot be excluded. Spleen: No splenomegaly. Pancreas: No pancreatic ductal dilation. Adrenals: No adrenal nodule. Kidneys and ureters: No hydronephrosis. No renal cystic lesion which requires follow up. No solid mas s. Stomach, bowel and peritoneum: No bowel distension. No pathologic free fluid. Lymph nodes: No central or retroperitoneal adenopathy. Vessels: No infrarenal aortic aneurysm. Aortobiiliac atherosclerotic calcifications. PELVIS Reproductive organs: Unremarkable. Bladder: No abnormal wall thickening, accounting for underdistention. Pelvic lymph nodes: No pelvic adenopathy by size criteria. Bones: No aggressive osseous abnormality. Other: No significant ventral or inguinal hernia. Postsurgical changes and subcutaneous gas in the ri ght anterior lateral abdominal wall. No definite rim-enhancing fluid collection to suggest abscess. IMPRESSION: Status post recent cholecystectomy with fluid and gas within the gallbladder fossa. Findings may repr esent postsurgical changes, however infection not be excluded. Postsurgical changes in the right ante rior lateral abdominal wall including soft tissue stranding and subcutaneous gas. Reviewed by: Renee Marley MD on 05/06/2023 2:52 PM AMBER Approved by: Renee Marley MD on 05/06/2023 2:52 PM AMBER Station ID: [id number]
[2023-05-06] MEDS: PIPERACILLIN/TAZOBACTAM 4.5 GM in SODIUM CHLORIDE 0.9% MINIBAG 100 ML IV STA (17:24)
[2023-05-06 17:25] VITALS: BP 134/77
[2023-05-06] MEDS ORDERED: VANCOMYCIN 1 GM VIAL ONE (17:49)
[2023-05-06] MEDS: VANCOMYCIN INJ 1.25 GM in SODIUM CHLORIDE 0.9% 250 ML IV STA (17:59)
[2023-05-07] MEDS ORDERED: VANCOMYCIN INJ 0.75 GM in SODIUM CHLORIDE 0.9% 250 ML IV SCH (06:00)
== END 2023-05-06 19:30 | disposition short-term general hospital (02) ==
LOC: EDBD → EDUNIT# → ED 12:42
DX: T81.42XA Infection following a procedure, deep incisional surgical site, initial encounter (principal); G89.18 Other acute postprocedural pain; I10 Essential (primary) hypertension; G80.9 Cerebral palsy, unspecified
CPT/HCPCS: 36415; 74177; 80053; 81003; 83605; 83690; 83735; 85025; 87040; 96365; 96375; 96376; 99285; J1170; J3370; Q0162; Q9967; 81001; 87086

== ENCOUNTER 2023-10-27 08:00 | Outpatient (CLI) | payer MEDICARE, MEDICAID ==
[2023-10-27 18:31] LABS: CALCIUM 9.6 mg/dL (8.5-10.3); POTASSIUM 3.7 mmol/L (3.5-4.5)
[2023-10-27 18:41] LABS: THYROID STIMULATING HORMONE 6.54 uIU/mL (0.34-5.60)
[2023-10-27 22:10] LABS: ESTIMATED AVERAGE GLUCOSE 117 mg/dL (70-100); HEMOGLOBIN A1c% 5.7 % (4.27-6.07)
== END 2023-10-27 23:59 | disposition home or self-care (01) ==
LOC: LAB.R 08:00
DX: R94.6 Abnormal results of thyroid function studies (principal); Z13.228 Encounter for screening for other metabolic disorders; R73.09 Other abnormal glucose
CPT/HCPCS: 80048; 83036; 84439; 84443